=== PATIENT | female | born 1955 | race Caucasian/White ===

== ENCOUNTER 2024-05-24 10:56 | Outpatient (AMB) | payer OTHER, SELFPAY ==
--- NOTE | 2024-05-24 10:58 | MHC.OFFVIS ---
Vital Signs 05/24/24 11:11 Height 5 ft 3 in Weight 340 lb BMI 60.2 Intake Visit Reasons: Bilateral knee pain Intake Note: Marie is a 69 year old female who presents with complaints of progressively worsening bilateral knee pains. She describes her pains as sharp and severe in nature. Her pains are now interfering with her activities of daily living and her ability to sleep well through the night. She has failed the last 3 months of conservative treatment which has included a home exercise program, topical creams, Tylenol and naproxen. She has had multiple cortisone injections in the past at another facility. Those injections gave her no relief. She has also had viscosupplementation injections which gave her fairly good relief. Allergies No Known Allergies Allergy (Verified 05/24/24 11:11) Medication List - Last Reconciled 05/25/24 by Mendel Laura MD acetaminophen 500 mg PO Q4H PRN bupropion HCl SR 200 mg PO QAM citalopram 20 mg PO DAILY ibuprofen 600 mg PO QID PRN levothyroxine mcg PO naproxen 500 mg PO BID omeprazole 20 mg PO DAILY rosuvastatin 20 mg PO BEDTIME solifenacin 10 mg PO DAILY PFSH Social History (Updated 05/24/24 @ 11:12 by GENET Man) Alcohol intake: current Alcohol intake frequency: other Comment: vacation Patient Tobacco Use Status: Former Tobacco user Current occupational status: retired Physical Exam Vital Signs: BMI result Body Mass Index 60.2 Const Other: Well-nourished well-developed very friendly female awake alert and oriented x3 in no acute distress Extrem Other: Bilateral lower extremity examination shows good capillary refill, no skin lesions noted, normal sensation light touch Bilateral knee examination shows minimal effusions, palpable crepitus with range of motion, pain with range of motion, range of motion from -3 degrees to 115 degrees, no instability Results Reviewed Results Reviewed: X-rays of the patient's bilateral knee show severe joint space narrowing, subchondral sclerosis, no acute bony abnormalities Assessment & Plan Assessment & Plan (1) Pain in both knees: Code(s): M25.561 - Pain in right knee; M25.562 - Pain in left knee (2) Osteoarthritis of left knee: Code(s): M17.12 - Unilateral primary osteoarthritis, left knee Category: Medical (3) Osteoarthritis of right knee: Code(s): M17.11 - Unilateral primary osteoarthritis, right knee Category: Medical Plan Mrs. Ley presents with bilateral knee pains due to osteoarthritis. I had a lengthy discussion with the patient regarding the treatment options. She wishes to hold off on surgery for as long as possible. I agree with this plan. She has not gotten good relief from cortisone injections in the past. She has gotten good relief from viscosupplementation injections in the past. Thus, I will see whether not her insurance company will cover a viscosupplementation injection, such as Durolane, for both of her knees. I will see her back once the injections are available. Feel free to call me at any time should questions regarding her orthopedic management arise. I spent 22 minutes in reviewing the patient's records and imaging studies, seeing the patient and documenting in the medical record. Orders: Orders XR knee LT 3V 05/24/24 M25.562 - Pain in left knee XR knee RT 3V 05/24/24 M25.561 - Pain in right knee Coding Level of Care Code Est Pt Level 3 (50855) Complex EM visit Add On G2211 Diagnoses Pain in both knees M25.561; M25.562 Osteoarthritis of left knee M17.12 Osteoarthritis of right knee M17.11
[2024-05-24 11:11] VITALS: BMI 60.2
== END 2024-05-24 11:32 | disposition home or self-care (01) ==
PROVIDERS: PCP Internal Medicine; Visit Provider Orthopaedic Surgery
DX: M17.0 Bilateral primary osteoarthritis of knee (principal)
CPT/HCPCS: 99213

== ENCOUNTER 2024-05-24 11:31 | Outpatient (REF) | payer OTHER, SELFPAY | END 2024-05-24 11:32 | disposition home or self-care (01) | LOC: HO.HOSX 11:31 | PROVIDERS: Visit Provider Orthopaedic Surgery | DX: M25.562 Pain in left knee (principal); M25.561 Pain in right knee | CPT/HCPCS: 73562 ==

== ENCOUNTER 2024-07-03 10:05 | Outpatient (AMB) | payer OTHER, SELFPAY ==
[2024-07-03 10:08] VITALS: BMI 60.2
--- NOTE | 2024-07-03 10:08 | A.OFFVIS_ITS ---
Vital Signs 07/03/24 10:08 Height 5 ft 3 in Weight 340 lb BMI 60.2 Intake Visit Reasons: Bilateral knee pain Intake Note: Marie is a 69 year old female who presents with complaints of progressively worsening bilateral knee pains. She describes her pains as sharp and severe in nature. Her pains are now interfering with her activities of daily living and her ability to sleep well through the night. She has failed the last 3 months of conservative treatment which has included a home exercise program, topical creams, Tylenol and naproxen. She has had multiple cortisone injections in the past at another facility. Those injections gave her no relief. She has also had viscosupplementation injections which gave her fairly good relief. Allergies No Known Allergies Allergy (Verified 07/03/24 10:08) Medication List - Last Reconciled 07/03/24 by Mendel Laura MD acetaminophen 500 mg PO Q4H PRN bupropion HCl SR 200 mg PO QAM citalopram 20 mg PO DAILY ibuprofen 600 mg PO QID PRN levothyroxine mcg PO naproxen 500 mg PO BID omeprazole 20 mg PO DAILY rosuvastatin 20 mg PO BEDTIME solifenacin 10 mg PO DAILY PFSH Social History (Updated 05/24/24 @ 11:12 by GENET Man) Alcohol intake: current Alcohol intake frequency: other Comment: vacation Patient Tobacco Use Status: Former Tobacco user Current occupational status: retired Physical Exam Vital Signs: BMI result Body Mass Index 60.2 Const Other: Well-nourished well-developed very friendly female awake alert and oriented x3 in no acute distress Extrem Other: Bilateral lower extremity examination shows good capillary refill, no skin lesions noted, normal sensation light touch Bilateral knee examination shows minimal effusions, palpable crepitus with range of motion, pain with range of motion, no instability Office Procedures AMB Joint Injection/Aspiration Joint Injection/Aspiration Primary Site: left knee Prep: site was prepped using aseptic technique Injected: 60 mg of (Durolane viscosupplementation) and 1% plain lidocaine Procedure: The patient tolerated the procedure well Coding 86812 - Large joint Procedure code (CPT) selection complete AMB Joint Injection/Aspiration Joint Injection/Aspiration Primary Site: right knee Prep: site was prepped using aseptic technique Injected: 60 mg of (Durolane viscosupplementation) and 1% plain lidocaine Procedure: The patient tolerated the procedure well Coding 41852 - Large joint Procedure code (CPT) selection complete Results Reviewed Results Reviewed: X-rays of the patient's bilateral knees taken previously show joint space narrowing, subchondral sclerosis, no acute bony abnormalities Assessment & Plan Assessment & Plan (1) Osteoarthritis of left knee: Code(s): M17.12 - Unilateral primary osteoarthritis, left knee Category: Medical (2) Osteoarthritis of right knee: Code(s): M17.11 - Unilateral primary osteoarthritis, right knee Category: Medical (3) Pain in both knees: Code(s): M25.561 - Pain in right knee; M25.562 - Pain in left knee Plan Ms. Ley presents with bilateral knee pains due to osteoarthritis. The risks and benefits of bilateral knee Durolane viscosupplementation injections were discussed at length with the patient. The patient wished to proceed. She tolerated the injections well. She will continue with her home exercise program. She will contact me prior to her follow-up appointment in 3 months should any questions or concerns arise. Feel free to call me at any time should questions regarding her orthopedic management arise. I spent 21 minutes in reviewing the patient's records and imaging studies, seeing the patient and documenting in the medical record. Orders: Orders 2 AMB Joint Injection/Aspiration Today M17.12 - Unilateral primary osteoarthritis, left knee AMB Joint Injection/Aspiration Today M17.11 - Unilateral primary osteoarthritis, right knee Coding Level of Care Code Est Pt Level 3 (68100) Complex EM visit Add On G2211 Diagnoses Osteoarthritis of left knee M17.12 Osteoarthritis of right knee M17.11 Pain in both knees M25.561; M25.562 CPT Codes Coding - 48441 Large joint: 51875 - Large joint ([id number]) Coding - 33930 Large joint: 40024 - Large joint ([id number])
== END 2024-07-03 11:01 | disposition home or self-care (01) ==
PROVIDERS: PCP Internal Medicine; Visit Provider Orthopaedic Surgery
DX: M17.0 Bilateral primary osteoarthritis of knee (principal)
CPT/HCPCS: 20610; 99213

== ENCOUNTER → 2024-07-03 10:05 | Outpatient (BNVA) | payer OTHER, SELFPAY | PROVIDERS: PCP Internal Medicine; Visit Provider Orthopaedic Surgery | DX: M17.0 Bilateral primary osteoarthritis of knee (principal); M25.561 Pain in right knee; M25.562 Pain in left knee | CPT/HCPCS: 20610; J2003 ==

== ENCOUNTER 2025-03-05 13:20 | Outpatient (AMB) | payer OTHER, SELFPAY ==
[2025-03-05 13:28] VITALS: BP 122/64; PULSE 65; O2SAT 97; BMI 63.1
--- NOTE | 2025-03-05 13:28 | MHC.OFFVIS ---
Vital Signs 03/05/25 13:28 Height 5 ft 3 in Weight 356 lb 0.745 oz BMI 63.1 BP 122/64 Blood Pressure Location Lt brachial Position Sitting Pulse 65 Pulse Source Pulse Oximeter Pulse Oximetry (%) 97 Oxygen Delivery Method Room Air Intake Visit Reasons: Pulmonary Nodules Transit Department Clerk Required: No Accompanied by: Spouse Allergies No Known Allergies Allergy (Verified 03/05/25 13:34) HPI Comments Details: The patient is here for pulmonary evaluation. The patient is a 70 year woman with a known history pulmonary nodules. Apparently back in 2020 she was admitted to [facility] with sepsis and pneumonia. We did review her CAT scan at that point demonstrating the airspace disease primarily in the right base in addition to hiatal hernia multiple pulmonary nodules. She has had CAT scans throughout. Her last CT scan was back in February 2024 which I personally reviewed demonstrating new pulmonary nodules subcentimeter in size. Although the largest nodular density measuring 6 x 7 mm in the right hemithorax is a triangular shape is seems to be pretty stable from her CAT scan from 2022. She will need a repeat CAT scan at this time. In addition to that the patient is having reflux symptoms. She does have the hiatal hernia she understands that this can increase the risk of infection. We did talk about the reflux diet sleeping elevated with dunlap. The patient was also noted to have an elevated pulmonary trunk in diameter. Bringing up the question of pulmonary hypertension. She does use CPAP in the CPAP therapy has been affecting beneficial. She does get supplies from her [employer]. Will go ahead and request an overnight oximetry to make sure that she is getting adequate oxygenation while she is sleeping. Also need to get access to her machine in order to adjust the machine accordingly. If she does have evidence of hypoxia then she will need a titration study to adjust her pressures and see if she needs a different type of setting. [facility] Medical History (Updated 03/05/25 @ 21:56 by Kwan Avitia MD) GENEVA (obstructive sleep apnea) Pulmonary nodules Social History Alcohol intake: current Alcohol intake frequency: other Comment: vacation Patient Tobacco Use Status: Former Tobacco user Current occupational status: retired Review of Systems Const Reports daytime sleepiness Eyes Reports no additional complaints ENT Reports nasal congestion Card Denies chest pain and Reports dyspnea on exertion Resp Reports dyspnea on exertion and Denies wheezing GI Reports dyspepsia Musc Reports myalgias Skin/Breast Denies rash Neuro Reports no additional complaints Clay/Lymph Reports no additional complaints Aller/Immun Denies wheezing Physical Exam Vital Signs: Last Vital Signs Pulse 65 03/05/25 13:28 BP 122/64 03/05/25 13:28 Pulse Ox 97 03/05/25 13:28 Oxygen Delivery Method Room Air 03/05/25 13:28 BMI result Body Mass Index 63.1 Const General: comfortable HEENT Head: Yes normocephalic Neck Neck: Yes supple Resp Effort & Inspection: normal respiratory effort Cardio Heart sounds: S1 normal heart sound present and S2 normal heart sound present GI Palpation (GI): Soft to palpation Skin General skin exam: no rashes or lesions noted Extrem General: No clubbing, No cyanosis and Yes edema Assessment & Plan Assessment & Plan (1) Pulmonary nodules: Code(s): R91.8 - Other nonspecific abnormal finding of lung field Category: Medical (2) GENEVA (obstructive sleep apnea): Code(s): G47.33 - Obstructive sleep apnea (adult) (pediatric) Category: Medical (3) Pulmonary hypertension: Comment: ?based on the dilated pulmonary trunck Code(s): I27.20 - Pulmonary hypertension, unspecified Category: Medical Plan CT chest Low sodium diet Weight management continue APAP Overnight oximetry on APAP/RA ECHO per Cardiology Orders: Orders Overnight Pulse Oximetry Today G47.33 - Obstructive sleep apnea (adult) (pediatric), I27.20 - Pulmonary hypertension, unspecified CT chest wo IV con Today R91.8 - Other nonspecific abnormal finding of lung field Coding Level of Care Code New Pt Level 4 (08563) Diagnoses Pulmonary nodules R91.8 GENEVA (obstructive sleep apnea) G47.33 Pulmonary hypertension I27.20 Time Spent (min) 45
--- OUTSIDE RECORDS SUMMARY | 2025-03-05 14:11 | XMS_ITS | Patient Health Record ---
Author Organization [facility] Address [address] [place] [address] Care Team Providers Care Chart Reader Name Role Phone Priyanka Mckeon MD Primary Care Provider Cali[place]o yen Allergies No Known Allergies Reason For Referral No Information Medications Medication SIG (Take, Route, Frequency, Duration) Notes Start Date End Date Status Synthroid 50 MCG 1 tablet in the morning on an empty stomach Orally Once a day Active Rosuvastatin Calcium 20 MG 1 tablet Oral ly Once a day Active Omeprazole 20 MG 1 capsule 30 minutes before morning meal Orally Once a day Active Lisinopril 10 MG 1 tablet Orally Once a day Not-Taking Ibuprofen 600 MG 1 tablet with food o r milk as needed Orally Three times a day Active Cyclobenzaprine HCl 10 MG 1 tablet at be dtime as needed Orally Once a day Active amLODIPine Besylate 2.5 MG 1 tablet Oral ly Once a day Active Citalopram Hydrobromide 10 MG 1 tablet Orally Once a day Active buPROPion HCl ER (SR) 200 MG 1 tablet in the morning Orally Once a day Active Aspirin 81 81 MG 1 tablet Orally Once a day Active Wellbutrin SR 200 MG 1 tablet in the morning Orally Once a day Active Vitamin B-12 500 MCG 1 tablet under the tongue and allow to dissolve Sublingual Once a day Active Trospium Chloride ER 60 MG 1 capsule in the morning on an empty stomach or 1 hour before a meal Orally Once a day Active Social History Tobacco Use: Social History Observation Description Date Details (start date - stop date) Former Smoker NA - NA Tobacco Use/Smoking Question Answer Notes Are you a former smoker Problems Problem Type SNOMED Code ICD Code Onset Dates Problem Status W/U Status Risk Notes Problem Complex regional pain syndrome type I of bilateral lower limbs (disorder) ([id number]) Complex regional pain syndrome I of lower limb, bilateral (G90.523) Active confirmed Problem Bilateral primar y osteoarthritis of knee (M17.0) Active confirmed Plan Of Treatment No Information Insurance Providers Payer Name Payer Address Payer Phone Subscriber Number Group Number Insured Name Patient Relationship to Insured Coverage Start Date Coverage End Date [facility] [address] [place] [phone] [id number] [employer] Self - patient is the insured 5 Medical (General) History Medical History History ICD Code hypertension anemia hyperlipidemia hypothyroidism ibs Surgical History Surgery Date(Month/Year) gallbladder surgery Hospitalization History Reason Date(Month/Year) ER for concussion 03/2023 ER for UTI 04/2023
--- OUTSIDE RECORDS SUMMARY | 2025-03-05 14:11 | XMS_ITS | Clinical Summary ---
Author Organization [facility] Address [address] [place] [address] Care Team Providers Care Application Development Liaison Name Role Phone Priyanka Mckeon MD Primary Care Provider [phone] Allergies Active Allergy Reactions Criticality Noted Date Comments Mold Unknown 03/24/2023 Medications cyanocobalamin (VITAMIN B12) 500 mcg tablet Take 1 tablet by mouth every night. 3 Active Synthroid 50 mcg tablet Take 1 tablet by mouth every night. 100 mcg on SUN/WEDs 3 Active omeprazole (PriLOSEC) 20 mg capsule Take 20 mg by mouth every night. 3 Active citalopram (CeleXA) 20 mg tablet Take 20 mg by mouth every night. Active aspirin 81 mg EC tablet Take 81 mg by mouth every night. Active buPROPion SR (WELLBUTRIN SR) 200 mg tablet Take 200 mg by mouth every night. Active Gemtesa 75 mg tablet Take 75 mg by mouth every night. 5 Active ucszvfcx-zvu-AD-lyc open-lutein 0.4 mg-300 mcg- 250 mcg tablet Take 1 tablet by mouth every night. Active ascorbic acid (VITAMIN C) 500 mg tablet Take 500 mg by mouth every night. Active Vitamin D3 25 mcg (1,000 unit) capsule Take 1,000 Units by mouth every night. Active amLODIPine (NORVASC) 5 mg tablet SMARTSI Tablet(s) By Mouth Daily Active rosuvastatin (CRESTOR) 20 mg tabletIndications:H yperlipidemia, unspecified hyperlipidemia type Take 1 tablet (20 mg total) by mouth nightly. 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 04/23/2023 Mood disorder 04/23/2023 GENEVA on CPAP 04/23/2023 Pre-diabetes 04/23/2023 Tinea pedis 04/23/2023 Back pain 04/23/2023 Chest pain 04/15/2023 Aortic arch atherosclerosis 04/15/2023 HTN (hypertension) 04/15/2023 Hyperlipidemia 04/15/2023 Arthritis of knee, right 11/23/2018 Arthritis of knee, left 10/12/2018 Elevated transaminase level 08/09/2014 Rib contusion 11/09/2013 Sciatica of right side 09/21/2013 Colonoscopy (Fiberoptic) Screening 01/25/2013 Overview (03/30/2017): DIAGNOSTIC Hypothyroidism 01/25/2013 Immunizations Immunization Administration Dates Next Due INFLUENZA, SPLIT VIRUS, TRIVALENT, PF 05/19/2012 Tetanus Toxoid, Reduced Diph theria Toxoid, and Acellular Pertussis Vaccine, Adsorbed 09/07/2007 Family History Medical History Relation Name Comments Other Father Family History of arthritis Uterine cancer Maternal Grandmother Osteoporosis Mother Other Mother Family History of lung cancer Other Other 1 Family history of Cancer UTERINE CANCER Other Other 2 Family history of Stroke Syndrome Other Other 3 Family history of Diabetes Mellitus Other Sister 1 Family History of lymphoma Other Sister 2 Family History of myocardial infarction Breast cancer Neg Hx Cervical cancer Neg Hx Colon cancer Neg Hx Ovarian cancer Neg Hx Relation Name Status Comments Father Maternal Grandmother Mother Other 1 Other 2 Other 3 Sister 1 Sister 2 Social History Tobacco Use Types Packs/Day Years Used Date Smoking Tobacco: Former Cigarettes 1 22 1 3 - 1994 Smokeless Tobacco: Never Tobacco Cessation:Counseling Given: Not Answered Comments::QUIT 1994 Alcohol Use Standard Drinks/Week Comments Not Currently 0 (1 standard drink = 0.6 oz pur e alcohol) very rarely once a year Comments No Sex and Gender Information Value Date Recorded Sex Assigned at Female 04/08/2023 4:14 PM EDT Legal Sex Female 12:13 AM EDT Gender Identity Female 04/08/2023 4:14 PM EDT Sexual Orientation Choose not to disclose 2022 4:14 PM EDT Sexual Orientation Straight 04/08/2023 4: 14 PM EDT Last Filed Vital Signs Vital Sign Reading Time Taken Comments Blood Pressure 121/63 11/27/2024 1:08 PM EDT Pulse 68 11/27/2024 1:08 PM EDT Temperature 36.1 C (97 F) 11/27/2024 11:29 AM EDT Respiratory Rate 18 11/27/2024 1:08 PM EDT Oxygen Saturation 98% 11/27/2024 1:08 PM EDT Inhaled Oxygen Concentration - - Weight 165.6 kg (365 lb) 11/27/2024 11:29 AM EDT Height 160 cm (5' 3 ) 11/27/2024 11:29 AM EDT Body Mass Index 64.66 11/27/2024 11:29 AM EDT Plan of Treatment Upcoming Encounters Date Type Department Care Team (Late st Contact Info) Description 11/19/2025 1:00 PM EDT Follow-Up [address] Cardiology [address] [place] [id number] Angely Sol, SARAH [address] [place] [address] [address] [place] [address] Health Maintenance Due Date Last Done Comments Cologuard 1955 FOBT / Fit Test 1955 Hepatitis C Screening 1955 Sigmoidoscopy 1955 Mammogram 1996 Osteoporosis Screening 02/24/2006 Zoster Vaccines (1 of 2) 02/24/2006 RSV Vaccine (60+ years old and patients) (1 - Risk 60-74 years 1-dose series) 2016 Colon Cancer Screening 12/15/2021 Colonoscopy 12/15/2021 12/16/2011 Pneumococcal Vaccine: 50+ Years (2 of 2 - PCV) 2022 2021 COVID-19 Vaccine ( season) 2024 06/04/2022, 07/07/2021, 11/07/2020, Additional history exists Alcohol/Substance Use Screening 07/11/2024 Depression Screening and Follow-Up 07/11/2024 04/16/2023 Health Care Proxy Review 07/11/2024 Social Drivers of Health Annual Screening 07/11/2024 Influenza Vaccine (#1) 2025 , 06/25/2022, 05/30/2021, Additional history exists Basic Metabolic Panel 11/07/2025 11/07/2024 DTaP,Tdap,and Td Vaccines (3 - Td or Tdap) 04/18/2028 04/18/2018, 09/07/2007 Hepatitis B Vaccines Aged Out No long er eligible based on patient's age to complete this topic Medical Devices Implanted Type Area Merchant Mariner Device Identifier Shelf Expiration Date Model / Serial / Lot Lens Intraocular [employer]onome Ultraviolet Filtering 15.0 Diopter With [id number] Clareon - [id number] - [id number] Implanted:Qty: 1 on 11/13/2024 by Prudencio Loaiza MD at [facility] Lens YANCY 05/21/2027 CNA0T0 .150 / [id number] / Lens Intraocular [employer]onome Ultraviolet Filtering 15.0 Diopter With [id number] Clareon - [id number] - [id number] Implanted:Qty: 1 on 11/27/2024 by Prudencio Loaiza MD at [facility] Lens YANCY 12/27/2026 CNA0T0 .150 / [id number] / Procedures * Due to [place] MtoV law, this organization might not be sharing negative HIV tests. Procedure Name Priority Date/Time Associated Diagnosis Comments COMPREHENSIVE METABOLIC PANEL STAT 11/07/2024 11:51 AM EDT Pre-op evaluation HM COLONOSCOPY Routine 12/16/2011 2:35 PM EDT from Last 3 Months or Most Recently Relevant to Health Maintenance Results * Due to [place] MtoV law, this organization might not be sharing negative HIV tests. * (ABNORMAL) Comprehensive Metabolic Panel (11/07/2024 11:51 AM EDT) NA 138 136 - 145 mmol/L 11/07/2024 12:26 PM EDT [facility] K 5.0 3.5 - 5.1 mmol/L 11/07/2024 12:26 PM EDT [facility] Cl 101 98 - 109 mmol/L 11/07/2024 12:26 PM EDT [facility] CO2 27 22 - 32 mmol/L 11/07/2024 12:26 PM EDT [facility] Anion Gap 15 >=0 11/07/2024 12:26 PM EDT [facility] Glucose 105(H) 60 - 99 mg/dL 11/07/2024 12:26 PM EDT [facility] Creatinine 0.97 0.50 - 1.12 mg/dL 11/07/2024 12:26 PM EDT [facility] Calcium 10.1 8.4 - 10.4 mg/dL 11/07/2024 12:26 PM EDT [facility] Total Protein 7.3 6.6 - 8.7 g/dL 11/07/2024 12:26 PM EDT [facility] Albumin 4.1 3.5 - 5.0 g/dL 11/07/2024 12:26 PM EDT [facility] Bilirubin, Total 0.7 0.2 - 1.2 mg/dL 11/07/2024 12:26 PM EDT [facility] Alkaline Phosphatase 74 40 - 129 U/L 11/07/2024 12:26 PM EDT [facility] AST 24 0 - 33 U/L 11/07/2024 12:26 PM EDT [facility] ALT 19 <=33 U/L 11/07/2024 12:26 PM EDT [facility] BUN 18 8 - 23 mg/dL 11/07/2024 12:26 PM EDT [facility] eGFR 64 >=60 mL/min/1. 73m2 11/07/2024 12:26 PM EDT [facility] Comment:The estimated glomer ular filtration rate (eGFR) is calculated using a new formula developed by the NKF-ASN task force to eliminate race-based correction factors. The new formula uses serum/plasma creatinine, age, and gender to determine eGFR. A value below 60mls/min might indicate kidney disease and will be flagged. For additional information, see Destiny et al, Am J Kidney Dis. 2021;79(2):268- 288, A Unifying Approach for GFR estimation: Recommendations of the NKF-ASN Task Force on Reassessing the Inclusion of Race in Diagnosing Kidney Disease . Globulin, Total 3.2 2.1 - 4.2 g/dL 11/07/2024 12:26 PM EDT [facility] A/G Ratio 1.3(L) 1.5 - 3.0 11/07/2024 12:26 PM EDT [facility] Blood Structure of peripheral vein / Unknown Venipuncture / Unknown 11/07/2024 11:51 AM EDT 11/07/2024 11:59 AM EDT Zhanna [facility] LAB BLOOD ORDERABLES Final Resu lt Performing Organization Address City/[facility]/ZIP Co de Phone Number [facility] [address] [place] [address], [place] [phone] * COLONOSCOPY (12/16/2011 2:35 PM EDT) Colonoscopy [facility] T[facility] 12/16/2011 2:35 PM EDT Shyam Titus HEALTH MAINTENANCE Final Result [facility] from Last 3 Months or Most Recently Relevant to Health Maintenance Insurance [facility] [place] [id number] Advance Directives * Full Code (Latest Code Status on File) Date Activated Date Inactivated Comments 11/27/2024 11:44 AM 11/27/2024 3:51 PM * Full Code Date Activated Date Inactivated Comments 11/27/2024 11:44 AM 11/27/2024 11:44 AM * Full Code Date Activated Date Inactivated Comments 11/27/2024 11:44 AM 11/27/2024 11:44 AM * Full Code Date Activated Date Inactivated Comments 11/13/2024 9:32 AM 11/13/2024 1:36 PM * Full Code Date Activated Date Inactivated Comments 11/13/2024 9:32 AM 11/13/2024 9:32 AM Healthcare Agents on File Name Relationship Healthcare Agent [facility] Communication Yobani eLy Spouse Health Care Agent [email or web address] Care Teams Application Development Liaison Relationship Specialty Start Date End Date Priyanka Mckeon MD [address] [place] [address] PCP - General Internal Medicine 11/16/24
--- OUTSIDE RECORDS SUMMARY | 2025-03-05 14:11 | XMS_ITS | Clinical Summary ---
Author Organization [facility] Address [address] [place] [address] Care Team Providers Care Compensator Name Role Phone Priyanka Mckeon MD Primary Care Provi luca Allergies Active Allergy Reactions Criticality Noted Date Comments Other 07/20/2023 Other reaction(s): MILDEW,MOLD,GRASS,TREES-HIVES, POLLEN Other reaction(s): YEAST-HEADACHES Medications buPROPion (WELLBUTRIN SR) 100 MG 12 hr tablet Take 100 mg by mouth. 09/13/2017 Active buPROPion (WELLBUTRIN SR) 200 MG 12 hr tablet TAKE 1 TABLET BY MOUTH EVERY MORNING 10/18/2017 Active citalopram (CeleXA) 20 MG tablet TAKE 1 TABLET BY MOUTH EVERY DAY 07/16/2017 Active fluticasone propionate (FLONASE) 50 mcg/actuation nasal spray USE 1 SPRAY IN BOTH NOSTRILS TWICE A DAY FOR 14 DAYS 07/17/2017 Active fluticasone propionate (FLONASE) 50 mcg/actuation nasal spray 12/10/2020 Active gabapentin (NEURONTIN) 600 MG tablet 600 mg. 08/17/2017 Active hyaluronate sodium, stabilized (Monovisc) 88 mg/4 mL syrg 05/09/2018 Active levothyroxine (SYNTHROID) 50 MCG tablet TAKE 1 TABLET BY MOUTH EVERY DAY 07/16/2017 Active Synthroid 50 mcg tablet 12/17/2020 Active lisinopriL (ZESTRIL) 10 MG tablet TAKE 1 TABLET BY MOUTH EVERY DAY 07/18/2017 Active lisinopriL (ZESTRIL) 10 MG tablet 09/24/2020 Active melatonin 3 mg tab Take 3 mg by mouth. 11/15/2017 Active Myrbetriq 25 mg Tb24 TAKE 1 TABLET BY MOUTH EVERY DAY DO NOT CRUSH OR CHEW 11/15/2020 Active omeprazole (PriLOSEC) 20 MG capsule Take 20 mg by mouth. 07/16/2017 Active omeprazole (PriLOSEC) 20 MG capsule 10/21/2020 Active ondansetron (ZOFRAN) 4 MG tablet 12/17/2020 Active albuterol 90 mcg/actuation inhaler INHALE 1 TO 2 PUFFS EVERY 4 HOURS IF NEEDED. 04/16/2018 Active celecoxib (CeleBREX) 200 MG capsule TAKE 1 CAPSULE BY MOUTH TWICE A DAY 03/24/2023 Active cholecalciferol , vitamin D3, 50 mcg (2,000 unit) tab Daily, 11/09/13 13:39:00 11/09/2013 Active cyclobenzaprine (FLEXERIL) 10 MG tablet TAKE 1 TABLET BY MOUTH 3 TIMES A DAY NEEDED SPASM FOR 7 DAYS 01/19/2023 Active ibuprofen (MOTRIN) 600 MG tablet TAKE 1 TABLET BY MOUTH 3 TIMES A DAY 01/19/2023 Active rosuvastatin 20 mg cpSP Take 20 mg by mouth 01/20/2023 Active rosuvastatin (CRESTOR) 20 MG tablet TAKE 1 TABLET BY MOUTH EVERY DAY 03/04/2023 Active buPROPion (Wellbutrin SR) 200 MG 12 hr tablet Take 1 tablet (200 mg total) by mouth 11/09/2022 Active citalopram (CeleXA) 10 MG tablet See Instructions, 1.5 tab a day, # 135 tablet, 1 Refills, Maintenance, 03/09/23 8:05:00 EDT, Tablet, [facility]/pharmacy #[id number], 160, cm, 01/27/23 11:22:00 EDT, Height, 169.7, kg, 01/19/23 14:55:00 EDT, Dry Weight 09/07/2022 Active citalopram (CeleXA) 10 MG tablet TAKE 1 & 1/2 TABLETS BY MOUTH EVERY DAY 03/09/2023 Active mirabegron 25 mg Take 25 mg by mouth 11/09/2022 Active mirabegron (Myrbetriq) 50 mg Take 50 mg by mouth 11/18/2022 Active omeprazole (PriLOSEC) 20 MG capsule Take 1 capsule (20 mg total) by mouth 11/10/2022 Active acetaminophen (TYLENOL) 325 MG tablet TAKE 3 TABLETS BY MOUTH EVERY 6 HOURS NEEDED FOR MODERATE PAIN 06/24/2023 Active acetaminophen (TYLENOL) 325 MG tablet Take 3 tablets (975 mg total) by mouth 06/24/2023 Active amLODIPine (NORVASC) 2.5 MG tablet TAKE 2 TABLETS BY MOUTH DAILY AT BEDTIME 06/22/2023 Active Readi-Cat 2 2 % (w/v) susp DRINK 1 BOTTLE BY 8 AM & SECOND BOTTLE 90 MINUTES BEFORE THE TEST. LIGHT MEAL, PLENTY OF FLUIDS. 05/09/2023 Active clonazePAM (KlonoPIN) 0.5 MG tablet TAKE 1 TABLET BY MOUTH EVERY DAY NEEDED FOR ANXIETY 05/04/2023 Active oxyCODONE-aceta minophen (PERCOCET) 5-325 mg tablet 1 tablet 06/21/2023 Act romulo sulfamethoxazol e-trimethoprim (BACTRIM DS) 800-160 mg tablet TAKE 1 TABLET BY MOUTH TWICE A DAY 04/17/2023 Active oxyCODONE-aceta minophen (PERCOCET) 5-325 mg tablet TAKE 1 TAB BY MOUTH EVERY 8 HOURS NEEDED FOR SEVERE PAIN,NO DRIVE/ALCOHOL /CLONAZEPAM/T YLENOL 06/02/2023 Active trospium 60 mg cp24 TAKE 1 CAPSULE BY MOUTH EVERY MORNING 06/03/2023 Active trospium 60 mg cp24 Take 60 mg by mouth 05/13/2023 Active gabapentin (NEURONTIN) 100 MG capsule TAKE 2 CAPSULES BY MOUTH EVERY DAY AT BEDTIME 05/24/2023 Active Social History Tobacco Use Types Packs/Day Years Used Date Smoking Tobacco: Former Smokeless Tobacco: Never Tobacco Cessation:Counseling Given: Not Answered Comments Unknown Sex and Gender Information Value Date Recorded Sex Assigned at Not on file Legal Sex Female 5:06 PM EDT Gender Identity Not on file Sexual Orientation Not on file Last Filed Vital Signs Vital Sign Reading Time Taken Comments Blood Pressure 124/74 07/20/2023 8:46 AM EST Pulse 81 07/20/2023 8:46 AM EST Temperature 36.3 C (97.4 F) 07/20/2023 8:46 AM EST Respiratory Rate 18 07/20/2023 8:46 AM EST Oxygen Saturation 98% 07/20/2023 8:46 AM EST Inhaled Oxygen Concentration - - Weight - - Height - - Body Mass Index - - Plan of Treatment Health Maintenance Due Date Last Done Comments Colorectal Cancer: COLONOSCO PY Screening every 10 yrs (or Modifier) 1955 Depression: Screening Annual ly using PHQ-2/9 in Adults 18 yrs or above (or HM Modifier)([facility]) 02/24/1974 Hepatitis C Virus Infection in Adolescents and Adults: Screening (or Modifier) ([facility]) 02/24/1974 [facility] Screening Reminder: Suzi ually for all adults ([facility]) 02/24/1974 Colorectal Cancer Screening 45 -75 Yrs (or HM Modifier) 02/24/2001 Colorectal Cancer: FLEXIBLE SIGMOIDOSCOPY Screening every 5 yrs 02/24/2001 Colorectal Cancer: Fecal Immunochemical Test (FIT) Annually [facility] 02/24/2001 Colorectal Cancer: High-sens itivity gFOBT Screening Annually [facility] 02/24/2001 Colorectal Cancer: Stool Col oguard Screening every 3 yrs 02/24/2001 Colorectal Cancer:CT Colonog simon Screening every 5 yrs 02/24/2001 Breast Cancer: Screening Suzi ually age 50-74 yrs (or HM Modifier)([facility]) 02/24/2006 Lung Cancer: Screening Annua lly in adults aged 50 to 80 years (or HM Modifiers)([facility]) 02/24/2006 Zoster/Shingles Vaccine Seri es Screening: Adults aged 18+ yrs (or HM Modifiers)([facility]) (1 of 2) 02/24/2006 Osteoporosis Screening to Pr event Fractures: Women aged 65 years+ ([facility]) 02/24/2021 Tobacco Smoking Cessation: i n Adults excluding Women: Behavioral and Pharmacotherapy Interventions ([facility]) 12/20/2021 12/20/2020 Pneumococcal Vaccination Scr eening: Patients 50+ yrs of age ([facility]) (2 of 2 - PCV) 2022 2021 COVID-19 Vaccine Screening: Initial Series and Booster Status ([facility]) ( - 2023- season) 2024 07/07/2021, 11/07/2020, 10/17/2020 Flu Vaccination: Ages 65+: Y early High Dose Recommended (or Modifier)([facility]) 02/08/2025 DTaP/Tdap/Td Vaccines ([facility]) (3 - Td or Tdap) 04/18/2028 04/18/2018, 09/06/2007 RSV Vaccines (1 - 1-dose 75+ series) 02/24/2031 Medical Devices Not on file Insurance [employer] Care Teams Compensator Relationship Specialty Start Date End Date Priyanka Mckeon MD [address] [place] [address] PCP - General Internal Medicine 12/20/20
--- OUTSIDE RECORDS SUMMARY | 2025-03-05 14:11 | XMS_ITS | Clinical Summary ---
Author Organization [facility] Address [address] [place] [address] Care Team Providers Care Mechanical Engineering Technologist Name Role Phone Priyanka Mckeon MD Primary Care Provider [phone] Allergies Active Allergy Reactions Criticality Noted Date Comments Penicillins 10/12/2017 Medications Medication Sig Dispensed Refills Start Date End Date Status buPROPion (WELLBUTRIN SR) 100 MG 12 hr tablet Take 100 mg by mouth every morning. 2 09/13/2017 Active citalopram (CELEXA) 20 MG tablet TAKE 1 TABLET BY MOUTH EVERY DAY 1 07/16/2017 Active fluticasone (FLONASE) 50 MCG/ACT nasal spray USE 1 SPRAY IN BOTH NOSTRILS TWICE A DAY FOR 14 DAYS 1 07/17/2017 Active gabapentin (NEURONTIN) 600 MG tablet 600 mg 3 (three) times a day. 1 08/17/2017 Active levothyroxine (SYNTHROID, LEVOXYL) tablet 50 mcg TAKE 1 TABLET BY MOUTH EVERY DAY 1 07/16/2017 Active lisinopril (PRINIVIL,ZESTRIL) tablet 10 mg TAKE 1 TABLET BY MOUTH EVERY DAY 1 07/18/2017 Active omeprazole (PRILOSEC) 20 MG capsule Take 20 mg by mouth 2 (two) times a day. 1 07/16/2017 Active buPROPion (WELLBUTRIN SR) 200 MG 12 hr tablet TAKE 1 TABLET BY MOUTH EVERY MORNING 2 10/18/2017 Active [facility] MELATONIN 3 MG TABS tablet Take 3 mg by mouth every night at bedtime as needed. for insomnia 1 11/15/2017 Active MONOVISC 88 MG/4ML SOSY 0 05/09/2018 Active VENTOLIN HFA 108 (90 Base) MCG/ACT inhaler INHALE 1 TO 2 PUFFS EVERY 4 HOURS IF NEEDED. 0 04/16/2018 Active dextromethorphan-guai FENesin (ROBITUSSIN-DM) 10-100 MG/5ML liquid Take 10 mL by mouth every 6 (six) hours as needed. 0 12/20/2020 Active Myrbetriq 25 MG TB24 24 hr tablet 0 11/24/2021 Active ondansetron (ZOFRAN) 4 MG tablet 0 12/17/2020 Active Active Problems Problem Noted Date Diagnosed Date Arthritis of knee, right 11/23/2018 Arthritis of knee, left 10/12/2018 Arthritis of right knee 10/12/2017 Immunizations Name Administration Dates Next Due Covid-19 (Pfizer) Dilution Required 11/07/2020,0 10/17/2020 Family History Medical History Relation Name Comments Cancer Brother Arthritis Father Cancer Father Arthritis Mother Blood Clots Mother Cancer Mother Diabetes Mother Heart disease Mother Cancer Sister Relation Name Status Comments Brother Father Mother Sister Social History Tobacco Use Types Packs/Day Years Used Date Smoking Tobacco: Former Cigarettes 1 Pipe Cigars Nicotine Inhalation Smokeless Tobacco: Former Quit: 1995 Alcohol Use Standard Drinks/Week Comments Yes 0 (1 standard drink = 0.6 oz pur e alcohol) social Sex and Gender Information Value Date Recorded Sex Assigned at Not on file Gender Identity Not on file Sexual Orientation Not on file Job Start Date Occupation Industry Not on file Not on file Not on file Last Filed Vital Signs Vital Sign Reading Time Taken Comments Blood Pressure - - Pulse - - Temperature - - Respiratory Rate - - Oxygen Saturation - - Inhaled Oxygen Concentration - - Weight 157.9 kg (348 lb) 01/13/2022 1:33 PM EDT Height 160 cm (5' 3 ) 01/13/2022 1:33 PM EDT Body Mass Index 61.65 01/13/2022 1:33 PM EDT Plan of Treatment Health Maintenance Due Date Last Done Comments Hepatitis C Screening 1955 Depression Screening 1968 BMI Counseling 02/24/1974 Preventative Health Evaluation 02/24/1974 DTap / Tdap / Td (1 - Tdap) 02/24/1975 Colon Cancer Screening (Colonoscopy) 02/24/2001 Breast Cancer Screening (Mammogram) 02/24/2006 Shingrix-Zoster Vaccine (1 o f 2) 02/24/2006 Fall Risk Assessment 02/24/2021 Osteoporosis Screening (DEXA Scan) 02/24/2021 Pneumococcal Vaccine (2 of 2 - PCV) 2022 2021 COVID-19 Vaccine (3 - 2023-2 5 season) 2024 11/07/2020, 10/17/2020 Influenza Vaccine (#1) 2025 , 06/25/2019 RSV Adult > 60+ Yrs or (1 - 1-dose 75+ series) 02/24/2031 Hepatitis B Vaccines Aged Out No long er eligible based on patient's age to complete this topic RSV Ped < 20 months Aged Out No longe r eligible based on patient's age to complete this topic Care Teams Mechanical Engineering Technologist Relationship Specialty Start Date End Date Priyanka Mckeon MD [address] [place] [address] [place] [address] PCP - General Internal Medicine 11/26/21
--- OUTSIDE RECORDS SUMMARY | 2025-03-05 14:11 | XMS_ITS | Encounter Summary ---
Author Organization [facility] Address [address] [place] [address] Care Team Providers Care Supervisor Melt House Name Role Phone Priyanka Mckeon MD Primary Care Provider [phone] Encounter Details Date Type Department Care Team (Latest Contact Info) Description 04/11/2023 Lab Requisition [facility] [address] [place] [address] Lindsey Ricks MD [address] [place] [address] Postmenopausal bleeding Social History Tobacco Use Types Packs/Day Years Used Date Smoking Tobacco: Former Comments::QUIT 1994 Comments Unknown Sex and Gender Information Value Date Recorded Sex Assigned at Female 04/08/2023 4:14 PM EDT Legal Sex Female 12:13 AM EDT Gender Identity Female 04/08/2023 4:14 PM EDT Sexual Orientation Choose not to disclose 2022 4:14 PM EDT Sexual Orientation Straight 04/08/2023 4: 14 PM EDT documented as of this encounter Plan of Treatment Upcoming Encounters Date Type Department Care Team (Late st Contact Info) Description 11/19/2025 1:00 PM EDT Follow-Up [facility] 100 [facility] Medical [facility] Cardiology [address] [place] [address] Angely Sol NP [address] [place] [address] documented as of this encounter Procedures * Due to [place] state law, this organization might not be sharing negative HIV tests. Procedure Name Priority Date/Time Associated Diagnosis Comments TISSUE EXAM - BENDER ONLY Routine 04/08/2023 3:44 PM EDT Postmenopausal bleeding documented in this encounter Results * Due to [place] law, this organization might not be sharing negative HIV tests. * Tissue Exam - Bender only (04/08/2023 3:44 PM EDT) Tissue Exam Result SEE DETAILS 04/13/2023 4:15 PM EDT [facility] Comment: FINAL DIAGNOSIS Endometrium, biopsy: - Small focus of crowded glands. - Background inactive endometrium. Comment: A small focus of crowded glands is present. These glands have altered cytologic features which suggests the possibility of atypical endometrial hyperplasia (endometrial intraepithelial neoplasia, EIN). However, the size of the focus is insufficient to establish a diagnosis of atypical endometrial hyperplasia (EIN). Repeat endometrial sampling (curettage) for further evaluation is recommended. Madhu Durand M.D. Electronic Signature: 04/13/2023 16:11 Crowded glands Crowded glands Clinical History Postmenopausal bleeding Microscopic Description Microscopic sections examined. Macroscopic Description Received in formalin is 0.5 cc aggregate whitfield soft tissue admixed with mucus and blood clot, wrapped in lens paper and totally submitted in cassette A1. (PK) Unless otherwise stated, all tissue is formalin-fixed and paraffin-embedded. This case was reviewed intradepartmentally. Grossing and technical work performed at [facility] ([facility], [address] [place] [address]; ; [id number]; CLIA #[id number] All professional pathology services performed at [facility] ([address] [place] [address]; ; CLIA #[id number]) Note: Some or all of the tests utilized in this case may be laboratory developed tests (LDT's) and may use class I analyte specific reagents (ASR). These tests were developed for clinical purposes and their performance characteristics determined by [facility] on tissue fixed in 10% neutral buffered formalin. Other fixatives have not been validated, and therefore results on tissue with such fixation should be interpreted with caution and in the clinical context. [facility] are qualified under the CLIA 1988 documents to provide high-complexity clinical laboratory testing. Tissue Specimen from endometrium / Unknown 04/08/2023 3:44 PM EDT 04/11/2023 11:57 AM EDT us Lindsey Ricks MD LAB PATH/CYTO ([place]) Final Result [facility] [address] [place] [address], documented in this encounter Visit Diagnoses Diagnosis Postmenopausal bleeding documented in this encounter Care Teams Supervisor Melt House Relationship Specialty Start Date End Date Priyanka Mckeon MD [address] [place] [address] PCP - General Internal Medicine 11/16/24 documented as of this encounter
== END 2025-03-05 14:14 | disposition home or self-care (01) ==
LOC: HO.HPS 13:20
PROVIDERS: PCP Internal Medicine; Visit Provider Hospitalist
DX: R91.8 Other nonspecific abnormal finding of lung field (principal); G47.33 Obstructive sleep apnea (adult) (pediatric); I27.20 Pulmonary hypertension, unspecified
CPT/HCPCS: 99204

== ENCOUNTER 2025-04-17 11:14 | Outpatient (AMB) | payer OTHER, SELFPAY ==
--- NOTE | 2025-04-17 11:30 | A.OFFVIS_ITS ---
Vital Signs 04/17/25 11:35 Height 5 ft 3 in Weight 348 lb BMI 61.6 Intake Visit Reasons: Bilateral knee pain Intake Note: Marie is a 70 year old female who presents with complaints of progressively worsening bilateral knee pain. She describes her pains as sharp in nature. The patient states that she did have a cortisone injection given into her left knee by another provider approximately 1 month ago. She got fairly good relief from that injection. She continues with her home exercise program. She has tried Tylenol which gives her mild relief. She is not able to tolerate anti- inflammatory medicines. Allergies NSAIDS (Non-Steroidal Anti-Inflamma Adverse Reaction (Mild, Verified 04/17/25 11:37) Unknown Medication List - Last Reconciled 04/17/25 by Mendel Laura MD acetaminophen 500 mg PO Q4H PRN amlodipine 5 mg PO DAILY ascorbate calcium (vitamin C) 500 mg PO DAILY bupropion HCl SR 200 mg PO QAM cholecalciferol (vitamin D3) 50 mcg PO DAILY citalopram 20 mg PO DAILY levothyroxine mcg PO mecobalamin (vitamin B12) mcg PO omeprazole 20 mg PO DAILY rosuvastatin 20 mg PO BEDTIME [facility] Medical History (Updated 03/05/25 @ 21:56 by Kwan Avitia MD) GENEVA (obstructive sleep apnea) Pulmonary nodules Social History Alcohol intake: current Alcohol intake frequency: other Comment: vacation Patient Tobacco Use Status: Former Tobacco user Current occupational status: retired Physical Exam Vital Signs: BMI result Body Mass Index 61.6 Extrem Other: Bilateral knee examination shows minimal effusions, palpable crepitus with range of motion, pain with range of motion, no instability Results Reviewed Results Reviewed: X-rays of the patient's bilateral knees taken previously show joint space narrowing, subchondral sclerosis, no acute bony abnormalities Assessment & Plan Assessment & Plan (1) Pain in both knees: Code(s): M25.561 - Pain in right knee; M25.562 - Pain in left knee Plan Ms. Ley presents with bilateral knee pains due to degenerative joint disease. I had a lengthy discussion with the patient regarding the treatment options. We will hold off on another injection at this time because she had a cortisone injection just 1 month ago. She will continue with her activity modifications. She will contact me prior to her follow-up appointment in 2 months should any questions or concerns arise. Feel free to call me at any time should questions regarding her orthopedic management arise. I spent 21 minutes in reviewing the patient's records and imaging studies, seeing the patient and documenting in the medical record. Coding Level of Care Code Est Pt Level 3 (76270) Complex EM visit Add On G2211 Diagnoses Pain in both knees M25.561; M25.562
[2025-04-17 11:35] VITALS: BMI 61.6
== END 2025-04-17 12:03 | disposition home or self-care (01) ==
LOC: HO.HOS 11:15
PROVIDERS: PCP Internal Medicine; Visit Provider Orthopaedic Surgery
DX: M25.561 Pain in right knee (principal); M25.562 Pain in left knee
CPT/HCPCS: 99213

== ENCOUNTER 2025-05-02 12:46 | Outpatient (AMB) | payer OTHER, SELFPAY ==
[2025-05-02 12:58] VITALS: BP 110/62; PULSE 73; O2SAT 96; BMI 61.3
--- NOTE | 2025-05-02 12:58 | A.OFFVIS_ITS ---
Vital Signs 05/02/25 12:58 Height 5 ft 3 in Weight 346 lb 2.012 oz BMI 61.3 BP 110/62 Blood Pressure Location Lt radial Position Sitting Pulse 73 Pulse Source Pulse Oximeter Pulse Oximetry (%) 96 Oxygen Delivery Method Room Air Intake Visit Reasons: Pulmonary Nodules Ground Equipment Mechanic Required: No Accompanied by: Spouse Allergies No Known Allergies Allergy (Verified 05/02/25 13:02) HPI Comments Details: The patient is a 70 year woman with a known history pulmonary nodules. Apparently back in 2020 she was admitted to [facility] with sepsis and pneumonia. We did review her CAT scan at that point demonstrating the airspace disease primarily in the right base in addition to hiatal hernia multiple pulmonary nodules. She has had CAT scans throughout. Her last CT scan was back in February 2024 which I personally reviewed demonstrating new pulmonary nodules subcentimeter in size. Although the largest nodular density measuring 6 x 7 mm in the right hemithorax is a triangular shape is seems to be pretty stable from her CAT scan from 2022. She will need a repeat CAT scan at this time. In addition to that the patient is having reflux symptoms. She does have the hiatal hernia she understands that this can increase the risk of infection. We did talk about the reflux diet sleeping elevated with dunlap. The patient was also noted to have an elevated pulmonary trunk in diameter. Bringing up the question of pulmonary hypertension. She does use CPAP in the CPAP therapy has been affecting beneficial. She does get supplies from her [employer]. Will go ahead and request an overnight oximetry to make sure that she is getting adequate oxygenation while she is sleeping. Also need to get access to her machine in order to adjust the machine accordingly. If she does have evidence of hypoxia then she will need a titration study to adjust her pressures and see if she needs a different type of setting. 05/02/2025 the patient is here for pulmonary follow-up visit. Overall the patient has been doing fair. Apparently she did get all the vaccines that she needed to get. The last when she got out the RSV, RSV. Afterwards she got sick. She is not sure if it was from the vaccine or just a coincidence. She started developing worsening cough chest tightness and fatigue. She also complains of a sore throat. They did do a rapid strep at the urgent care and was negative. She was not swabbed for COVID or flu. At this point he has been about 5 or 6 days since her illness so will hold off on any swabs. Still though her lungs are clear she does have some rhonchi. I did give her a nebulizer treatment she was able to cough up some yellow phlegm. She did have a chest x- ray at the urgent care. There was some atelectasis question pneumonia. They gave her a Z-Min and a 3 day course of Augmentin. I will go ahead and switch over to just a stronger dose of azithromycin 500 mg for 5 days. The patient also will be could be getting a Medrol Min to help her with the inflammation and also a rescue inhaler. She did get a nebulizer treatment in the office it did help her and if she does need a nebulizer machine for the home she can always call so we can set her up with 1. She did have a CT scan of the chest at [facility]. This is done prior to her illness demonstrating stable pulmonary nodules. No evidence of any atelectasis or pneumonia in the left base. I do have a CD with her chest x-ray images. I will downloaded to review it. If the patient is not better she is going to call. Otherwise will follow- up in 3 months. [facility] Medical History (Updated 05/02/25 @ 22:06 by Kwan Avitia MD) GENEVA (obstructive sleep apnea) Pulmonary nodules Social History Alcohol intake: current Alcohol intake frequency: other Comment: vacation Patient Tobacco Use Status: Former Tobacco user Current occupational status: retired Review of Systems Const Reports daytime sleepiness, Reports fatigue and Reports malaise Eyes Reports no additional complaints ENT Reports nasal congestion Card Denies chest pain and Reports dyspnea on exertion Resp Reports chest congestion, Reports cough, Reports dyspnea on exertion and Reports wheezing GI Reports dyspepsia Musc Reports myalgias Skin/Breast Denies rash Neuro Reports no additional complaints Endo Reports fatigue Caly/Lymph Reports no additional complaints Aller/Immun Reports wheezing Physical Exam Vital Signs: Last Vital Signs Pulse 73 05/02/25 12:58 BP 110/62 05/02/25 12:58 Pulse Ox 96 05/02/25 12:58 Oxygen Delivery Method Room Air 05/02/25 12:58 BMI result Body Mass Index 61.3 Const General: comfortable HEENT Head: Yes normocephalic Neck Neck: Yes supple Resp Effort & Inspection: normal respiratory effort and prolonged expiratory phase Auscultation: diminished lung sounds Cardio Heart sounds: S1 normal heart sound present and S2 normal heart sound present GI Palpation (GI): Soft to palpation Skin General skin exam: no rashes or lesions noted Extrem General: No clubbing, No cyanosis and Yes edema Assessment & Plan Assessment & Plan (1) Pulmonary nodules: Code(s): R91.8 - Other nonspecific abnormal finding of lung field Category: Medical (2) GENEVA (obstructive sleep apnea): Code(s): G47.33 - Obstructive sleep apnea (adult) (pediatric) Category: Medical (3) Pulmonary hypertension: Comment: ?based on the dilated pulmonary trunck Code(s): I27.20 - Pulmonary hypertension, unspecified Category: Medical (4) Bronchitis: Code(s): J40 - Bronchitis, not specified as acute or chronic Category: Medical Plan CT chest stable 03/2025 start Azithromycin 500mg x 5 days start Medrol pk MIGUEL as needed Mucinex as needed continue APAP ECHO per Cardiology Need to review CXR F/U 3 months, will call if no better Medications: New azithromycin 500 mg PO DAILY 5 tabs 0RF 5 days methylprednisolone (Medrol (Min)) PO PER PKG DIR 21 ea 0RF 6 days albuterol sulfate 90 mcg/actuation 2 inhalations inhalation Q6H PRN 18 grams 12RF shortness of breath or wheezing 30 days J44.9 - Chronic obstructive pulmonary disease, unspecified Coding Level of Care Code Est Pt Level 4 (69217) Diagnoses Pulmonary nodules R91.8 GENEVA (obstructive sleep apnea) G47.33 Pulmonary hypertension I27.20 Bronchitis J40 Time Spent (min) 17
--- OUTSIDE RECORDS SUMMARY | 2025-05-02 15:53 | XMS_ITS | Clinical Summary ---
Author Organization [facility] Address [address] [place] [address] Care Team Providers Care Financial Assistance Specialist Name Role Phone Priyanka Mckeon MD Primary Care Provider [phone] Allergies Active Allergy Reactions Criticality Noted Date [...] mg by mouth every night. 5 Active [id number]-[id number]-[id number]-lyc open-lutein 0.4 mg-300 mcg- 250 mcg tablet [...] cardiovascular exam 07/27/2023 Anemia 04/23/2023 CAD in [place] artery 04/23/2023 SY (dyspnea on exertion) 04/23/2023 [...] Info) Description 11/19/2025 1:00 PM EDT Follow-Up [address] Cardiology [address] [place] [address] Angely Sol, SARAH [address] [place] [address] [address] [place] [address] Health Maintenance Due Date Last Done Comments [...] (2 of 2 - PCV) 2022 2021 Alcohol/Substance Use Screening 07/11/2024 Depression Screening and Follow-Up 07/11/2024 Health Care Proxy Review 07/11/2024 Social Drivers of Health Annual Screening 07/11/2024 COVID-19 Vaccine ( season) 2025 06/04/2022, 07/07/2021, 11/07/2020, Additional history exists Influenza Vaccine (#1) 2025 , 06/25/2022, 05/30/2021, Additional history exists Basic Metabolic Panel 11/07/2025 11/07/2024 Diabetes Screening 11/08/2027 11/07/2024, 11/07/2024 DTaP,Tdap,and Td Vaccines (3 - Td or Tdap) 04/18/2028 04/18/2018, 09/07/2007 Hepatitis B Vaccines Aged Out No long er eligible based on patient's age to complete this topic Medical Devices Implanted Type Area Processor Inspector Device Identifier Shelf Expiration Date Model / Serial / Lot Lens Intraocular [employer]onome Ultraviolet Filtering 15.0 Diopter With [id number] [place] - [id number] - [id number] Implanted:Qty: 1 on 11/13/2024 by Prudencio Loaiza MD at [facility] Lens YANCY 05/21/2027 CNA0T0 .150 / [id number] / Lens Intraocular [employer]onome Ultraviolet Filtering 15.0 Diopter With [id number] [place] - [id number] - [id number] Implanted:Qty: 1 on 11/27/2024 by Prudencio Loaiza MD at [facility] Lens YANCY 12/27/2026 CNA0T0 .150 / [id number] / Procedures * Due to [place] state law, this organization might not be sharing negative HIV tests. Procedure Name Priority Date/Time Associated Diagnosis Comments HEMOGLOBIN A1C STAT 11/07/2024 11:53 AM EDT Pre-op evaluation COMPREHENSIVE METABOLIC PANEL STAT 11/07/2024 11:51 AM EDT Pre-op evaluation HM COLONOSCOPY Routine 12/16/2011 2:35 PM EDT from Last 3 Months or Most Recently Relevant to Health Maintenance Results * Due to [place] state law, this organization might not be sharing negative HIV tests. * (ABNORMAL) Hemoglobin A1c (11/07/2024 11:53 AM EDT) Hemoglobin A1c 5.8(H) 4.0 - 5.7 % 11/07/2024 12:20 PM EDT [facility] Estimated Average Glucose 120 mg/dL 11/07/2024 12:20 PM EDT [facility] Blood Structure of peripheral vein / Unknown Venipuncture / Unknown 11/07/2024 11:53 AM EDT 11/07/2024 11:59 AM EDT us Zhanna Israel IT BUSINESS SYSTEMS ANALYST LAB BLOOD ORDERABLES Final Resu lt Performing Organization Address City/State/[facility] Co de Phone Number [facility] [address] [place] [address], * (ABNORMAL) Comprehensive Metabolic Panel (11/07/2024 11:51 AM EDT) Pathologist [facility] NA 138 136 - 145 mmol/L 11/07/2024 12:26 PM EDT [facility] K 5.0 3.5 - 5.1 mmol/L 11/07/2024 12:26 PM EDT [facility] Cl 101 98 - 109 mmol/L 11/07/2024 12:26 PM EDT [facility] CO2 27 22 - 32 mmol/L 11/07/2024 12:26 PM EDT [facility] Anion Gap 15 >=0 11/07/2024 12:26 PM EDT [facility] Glucose 105(H) 60 - 99 mg/dL 11/07/2024 12:26 PM EDT [facility] Creatinine 0.97 0.50 - 1.12 mg/dL 11/07/2024 12:26 PM EDT [facility] Calcium 10.1 8.4 - 10.4 mg/dL 11/07/2024 12:26 PM EDT [facility] Total Protein 7.3 6.6 - 8.7 g/dL 11/07/2024 12:26 PM EDT [facility] Albumin 4.1 3.5 - 5.0 g/dL 11/07/2024 12:26 PM EDT [facility] Bilirubin, Total 0.7 0.2 - 1.2 mg/dL 11/07/2024 12:26 PM EDT [facility] Alkaline Phosphatase 74 40 - 129 U/L 11/07/2024 12:26 PM EDT [facility] AST 24 0 - 33 U/L 11/07/2024 12:26 PM EDT [facility] ALT 19 <=33 U/L 11/07/2024 12:26 PM EDT [facility] BUN 18 8 - 23 mg/dL 11/07/2024 12:26 PM T [facility] eGFR 64 >=60 mL/min/1. 73m2 11/07/2024 12:26 PM EDT [facility] Comment:The estimated glomer ular filtration rate (eGFR) is calculated using a new formula developed by the NKF-ASN task force to eliminate race-based correction factors. The new formula uses serum/plasma creatinine, age, and gender to determine eGFR. A value below 60mls/min might indicate kidney disease and will be flagged. For additional information, see Dixon et al, Am J Kidney Dis. 2021;79(2):268- 288, A Unifying Approach for GFR estimation: Recommendations of the NKF-ASN Task Force on Reassessing the Inclusion of Race in Diagnosing Kidney Disease . Globulin, Total 3.2 2.1 - 4.2 g/dL 11/07/2024 12:26 PM EDT [facility] A/G Ratio 1.3(L) 1.5 - 3.0 11/07/2024 12:26 PM T [facility] Blood Structure of peripheral vein / Unknown Venipuncture / Unknown 11/07/2024 11:51 AM EDT 11/07/2024 11:59 AM EDT Zhanna Israel IT BUSINESS SYSTEMS ANALYST LAB BLOOD ORDERABLES Final Resu lt [facility] [address] [place] [address], [place] [phone] * COLONOSCOPY (12/16/2011 2:35 PM EDT) Colonoscopy Dr. Titus [facility] 12/16/2011 2:35 PM EDT Shyam Titus HEALTH MAINTENANCE Final Result [facility] from Last 3 Months or Most Recently Relevant to Health Maintenance Insurance Advance Directives * Full Code (Latest Code [...] Agents on File Name Relationship Healthcare Agent Relationsour lady of mercy hospital - [facility] Communication Yobani Ley Spouse Health Care Agent [email or web address] Care Teams Financial Assistance Specialist Relationship Specialty Start Date End Date Priyanka Mckeon MD [address] [place] [id number] PCP - General Internal Medicine 11/16/24
--- OUTSIDE RECORDS SUMMARY | 2025-05-02 15:53 | XMS_ITS | Clinical Summary ---
Author Organization [facility] Address [address] [place] [address] Care Team Providers Care Manager Strategic Partnerships Name Role Phone Priyanka Mckeon MD Primary Care Provider [phone] Allergies Active Allergy Reactions Criticality Noted Date [...] PCV) 2022 2021 COVID-19 Vaccine (3 - 2024-2 6 season) 2025 11/07/2020, 10/17/2020 Influenza Vaccine (#1) 2025 , 06/25/2019 RSV Adult > 60+ Yrs or (1 - 1-dose 75+ series) 02/24/2031 Hepatitis B Vaccines Aged Out No long er eligible based on patient's age to complete this topic RSV Ped < 20 months Aged Out No longe r eligible based on patient's age to complete this topic Care Teams Manager Strategic Partnerships Relationship Specialty Start Date End Date Priyanka Mckeon MD [address] [place] [address] [place] [address] PCP - General Internal Medicine 11/26/21
--- OUTSIDE RECORDS SUMMARY | 2025-05-02 15:53 | XMS_ITS | Encounter Summary ---
Author Organization [facility] Address [address] [place] [address] Care Team Providers Care Instructional Technology Director Name Role Phone Priyanka Mckeon MD Primary Care Provider [phone]- [phone] Encounter Details Date Type Department Care Team (Latest Contact Info) Description 04/11/2023 Lab Requisition [facility] Lab [address] [place] [address] Lindsey Ricks MD [address] [place] [address] Postmenopausal bleeding Social History Tobacco Use Types [...] Info) Description 11/19/2025 1:00 PM EDT Follow-Up [facility] 100 [facility] Medical [facility] Cardiology [address] [place] [address] Angely Sol NP [address] [place] [address] documented as of this encounter Procedures * Due to [place] state law, this organization might not be sharing negative HIV tests. Procedure Name Priority Date/Time Associated Diagnosis Comments TISSUE EXAM - BENDER ONLY Routine 04/08/2023 3:44 PM EDT Postmenopausal bleeding documented in this encounter Results * Due to [place] [employer] law, this organization might not be sharing negative HIV tests. * Tissue Exam - Bender only (04/08/2023 3:44 PM EDT) Tissue Exam Result SEE DETAILS 04/13/2023 4:15 PM EDT [facility] Comment: FINAL DIAGNOSIS Endometrium, [...] intradepartmentally. Grossing and technical work performed at [facility] ([facility], [address] [place] [address]; ; [id number]; CLIA #[id number] All professional pathology services performed at [facility] ([address] [place] [address]; ; CLIA #[id number]) Note: Some or all of the tests utilized in this case may be laboratory developed tests (LDT's) and may use class I analyte specific reagents (ASR). These tests were developed for clinical purposes and their performance characteristics determined by [facility] on tissue fixed in 10% neutral buffered formalin. Other fixatives have not been validated, and therefore results on tissue with such fixation should be interpreted with caution and in the clinical context. [facility] are qualified under the CLIA 1988 documents to provide high-complexity clinical laboratory testing. Tissue Specimen from endometrium / Unknown 04/08/2023 3:44 PM EDT 04/11/2023 11:57 AM EDT us Lindsey Ricks MD LAB PATH/CYTO ([place]) Final Result [facility] [address] [place] [address], documented in this encounter Visit Diagnoses Diagnosis Postmenopausal bleeding documented in this encounter Care Teams Instructional Technology Director Relationship Specialty Start Date End Date Priyanka Mckeon MD [address] [place] [address] PCP - General Internal Medicine 11/16/24 documented as of this encounter
--- OUTSIDE RECORDS SUMMARY | 2025-05-02 15:53 | XMS_ITS | Clinical Summary ---
Author Organization [facility] Address [address] [place] [id number] Phone Care Team Providers Care Second Officer Name Role Phone Pcp, Unknown Primary Care Provider Unavailabl e Social History Tobacco Use Types Packs/Day Years Used Date Smoking Tobacco: Never Assessed Education Answer Date Recorded Are you interested in more education? Not on shmuel e 04/12/2025 Are you concerned about learning? Not on file 04/12/2025 No 04/12/2025 No 04/12/2025 Digital Access Answer Date Recorded No 04/12/2025 No 04/12/2025 Reliable internet access at home? Not on file 04/12/2025 Device with a working camera? Not on file Comments Unknown Sex and Gender Information Value Date Recorded Sex Assigned at Not on file Legal Sex Female 3:55 PM EDT Gender Identity Not on file Sexual Orientation Not on file Plan of Treatment Upcoming Encounters Date Type Department Care Team ([facility] st Contact Info) Description 10/11/2025 11:15 AM EDT Office Visit [facility] [address] [place] [id number] Rhona Avila PA-C [address] [place] [id number] [email or web address] Health Maintenance Due Date Last Done Comments Adult Td,Tdap Booster 1956 LIPID PANEL 1956 DEPRESSION SCREENING 1968 SMOKING Hx and SMOKELESS TOB ACCO SCREENING 02/24/1969 HEPATITIS C SCREENING 02/24/1974 MAMMOGRAM 1996 COLOGUARD 02/24/2001 COLONOSCOPY 02/24/2001 COLORECTAL CANCER SCREENING 02/24/2001 FIT TEST 02/24/2001 FOBT 02/24/2001 SIGMOIDOSCOPY 02/24/2001 VIRTUAL COLONOSCOPY 02/24/2001 PNEUMOCOCCAL VACCINES (50+ y ears) (1 of 1 - PCV) 02/24/2006 ZOSTER VACCINES (1 of 2) 02/24/2006 OSTEOPOROSIS SCREENING INITI AL (ONE-TIME) 02/24/2021 INFLUENZA VACCINE (#1) 2025 COVID-19 VACCINE (1 - 2024-2 6 season) 2025 RSV VACCINE (1 - 1-dose 75+ series) 02/24/2031 HEPATITIS A VACCINES Aged Out No long er eligible based on patient's age to complete this topic HIB VACCINES Aged Out No longer eligi ble based on patient's age to complete this topic MENINGOCOCCAL VACCINES (ACWY) Aged Out No longer eligible based on patient's age to complete this topic MENINGOCOCCAL VACCINES (B) Aged Out N o longer eligible based on patient's age to complete this topic Medical Devices Not on file Care Teams Second Officer Relationship Specialty Start Date End Date Pcp, Unknown PCP - General 04/12/25 Additional Source Comments The information contained in this document represents components of the legal health record. It is not the complete legal health record.[facility]
--- OUTSIDE RECORDS SUMMARY | 2025-05-02 15:53 | XMS_ITS | Data Portability ---
Author Organization [place] [facility] Sub[facility] Reyes AONE Dupuyer Address [address] [place] [address] Care Team Providers Care Non Licensed Nuclear Equipment Operator Name Role Phone TRACYE KOCH Orthopedic Surgeon Assessment Encounter Date Assessment Date Assessment LastModified by Organization Details LastModified Time 03/20/2025 03/20/2025 Patient is a 70-year-old female with ycky-cw-axbd articulation in the right knee. She has received hyaluronic acid injection in the past. She had a recent episode which she felt was different after period of extended standing and walking. She feels her knee is unstable at times. We reviewed her x-rays together on the computer. Although she is in need of a knee replacement, a BMI of 62 makes it very difficult. Her surgeon Dr. Koch had given her hyaluronic acid injection a year ago. She was recommended to return to Dr. Koch to consider hyaluronic acid injection again. She is looking for some relief. She was offered a corticosteroid injection and eager to proceed. Realistic expectations were emphasized. Advantages and limitations of knee braces were discussed. Her has a brace that he thinks would fit her which she will try. Continues to have instability, walker might be helpful. Patient tolerated the injection well. Postinjection instructions given. Frequency of injection was reviewed. Patient will follow-up in 3 to 4 weeks if symptoms have not improved, sooner for any complications. All questions answered to their satisfaction. Patient will call and schedule with Dr. Koch. Patient was evaluated by Jl Ramírez PA-C. I, Austen Juan MD, was present in the office or available for consultation. I reviewed the documentation, including history, exam, and test results, and I agree with the assessment and treatment plan as documented. [email or web address] Not available 03/20/2025 13:09:08 Plan of Treatment Reminders Order Date Submit Date Provider Last Modified By Organization Details Last Modified Time Details Appointments None recorded. Lab None recorded. Referral None recorded. Procedures None recorded. Surgeries None recorded. Imaging XR, knee, 4 or more view 2024 0[address] [place] [address] [facility], [address], [place], [address], 15:46:30 Medication Orders lidocaine (PF) 100 mg/5 mL (2 %) injection syringe 2024 025 [place] [address] [id number], [address] [place], [address], 15:46:30 triamcinolo ne acetonide 40 mg/mL suspension for injection 2024 025 [place] [address] [id number], [address] [place], [address], 5 15:46:30 Patient TargetsNo targets recorded. Patient Instructions Encounter Date Encounter Id Patient Instructions Last Modified By Organization Details Last Modified Time 03/20/2025 [id number] Radiographs: 4 views of the Left knee(s) were obtained in the [place] office on 03/20/2025 including AP, [place], lateral (weightbearing), and sunrise. X-rays demonstrated mildly decreased bony mineralization. Joint spaces severely decreased medial and patellafemoral subchondral sclerosis and osteophytosis. No evidence of acute injury or fracture. Findings: Osteoarthritis Left Knee. X-ray interpretation by: Jl Ramírez PA-C [email or web address] Not available 03/20/2025 13:09:43 Reason for Referral None Reported. Problems Name Problem SNOMED Code Status Onset Date Resolution Date Notes Provider Name and Address Organization Details Recorded Time Arthritis of right knee joint 05124744154 51335 Active 2017 Arthritis of right knee Arth ritis of knee, right Not Available [facility] 5 23:47:57 Arthritis of left knee joint 99364011728 94566 Active 2018 Arthritis of knee, left Not Available [facility] 5 23:47:56 Problem Notes None recorded. Procedures Surgical History Date Name Laterality Status Provider Name and Address Organization Details Recorded Time 5 HAKAN Knee Injection completed JL RAMÍREZ PA-C [address], [place], [address], [place] [facility], 03/20/2025 13:06:51 Imaging Results None recorded. Procedure Notes None recorded. Medical Equipment None Reported. Allergies Allergen ID Allergen Name Allergen Category Reaction Reaction Severity Criticality Documentation Date Start Date Code Code System Note Provider Name and Address Organization Details Recorded Time 32949 Product containin g penicilli n (product) medicatio n Not available Not available Not available 04/02/20252017 58622 8001 SNOMED Not Available [facility] 5 01:21:12 Medications Name Sig Start Date Stop Date Status Note LastModified by Organization Details LastModified Time gabapentin 600 mg tablet 600 mg 3 (three) times a day. 2017 active Not Available Not Available Not Avai lable ondansetron HCl 4 mg tablet 2020 active Not Available Not Available Not Avai lable melatonin 3 mg tablet Take 3 mg by mouth every night at bedtime as needed. for insomnia 2017 active Not Available Not Available Not Avai lable bupropion HCl SR 100 mg tablet,12 hr sustained-r elease Take 100 mg by mouth every morning. 2017 active Not Available Not Available Not Avai lable citalopram 20 mg tablet TAKE 1 TABLET BY MOUTH EVERY DAY 2017 active Not Available Not Available Not Avai lable triamcinolo ne acetonide 40 mg/mL suspension for injection Take 40 mg by injection route. 2024 active Not Available Not Available Not Avai lable levothyroxi ne 50 mcg tablet TAKE 1 TABLET BY MOUTH EVERY DAY 2017 active Not Available Not Available Not Avai lable lisinopril 10 mg tablet TAKE 1 TABLET BY MOUTH EVERY DAY 2017 active Not Available Not Available Not Avai lable omeprazole 20 mg capsule,del ayed release Take 20 mg by mouth 2 (two) times a day. 2017 active Not Available Not Available Not Avai lable fluticasone propionate 50 mcg/actuati on nasal spray,suspe nsion USE 1 SPRAY IN BOTH NOSTRILS TWICE A DAY FOR 14 DAYS 2017 active Not Available Not Available Not Avai lable Ventolin HFA 90 mcg/actuati on aerosol inhaler INHALE 1 TO 2 PUFFS EVERY 4 HOURS IF NEEDED. 2017 active Not Available Not Available Not Avai lable bupropion HCl SR 200 mg tablet,12 hr sustained-r elease TAKE 1 TABLET BY MOUTH EVERY MORNING 2017 active Not Available Not Available Not Avai lable lidocaine (PF) 10 mg/mL (1 %) injection solution 11/23 completed Not Available Not Available Not Available lidocaine (PF) 100 mg/5 mL (2 %) injection syringe Take 4 mL by injection route. 2024 active Not Available Not Available Not Avai lable Myrbetriq 25 mg tablet,exte nded release 2021 active Not Available Not Available Not Avai lable hyaluronate sodium, cross-linke d 30 mg/3 mL intra-artic ular syringe 03/28 completed Not Available Not Available Not Available hyaluronate sodium, stabilized 88 mg/4 mL intra-artic ular syringe 02/10 completed Not Available Not Available Not Available Vitals Date Recorded Body height Body mass index (BMI) Body weight Provider Name and Address Organization Details Last Updated DateTime 03/20/2025 160.02 cm 62.9 kg/m2 673658.[address] [facility] 03/20/2025 12:00:53 Social History None recorded. Functional Status None recorded. Mental Status None recorded. Family History Nothing Reported. Medical History No medical history recorded. Gynecological HistoryNo gynecological history recorded. Obstetrics History GPAL:G 0 P 0 0 0 0 Immunizations Vaccine Type Date Status Note Provider Nam e and Address Organization Details Recorded Time COVID-19, mRNA, LNP-S, PF, 30 mcg/0.3 mL dose 11/07/2020 completed Not Available [facility] 5 06:13:56 COVID-19, mRNA, LNP-S, PF, 30 mcg/0.3 mL dose 10/17/2020 completed Not Available [facility] 5 06:13:56 Past Encounters Encounter ID Performer Location Encounter Start Date Encounter Closed Date Diagnosis/Indication Diagnosis SNOMED-CT Code Diagnosis ICD10 Code Diagnosis IMO Codes Diagnosis Note [id number] JL RAMÍREZ PA-C [facility]ly [facility] [address] [facility] [address] [place] [address] 03/20/2025 11:38:20 03/20/2025 12:28:50 Pain of left knee region 5887075108 55043 M25.562 44358118 Osteoarthr itis of left knee joint 2812573288 50674 M17.12 [id number] Health Concerns Section Related Observation LastModified by Organization Detai ls LastModified Time None Recorded Concern Status LastModified by Organization Details LastModified Time None Recorded Advance Directives Directive None Recorded Payers Insurance Date Sequence Insurance Name Policy Number Policy Alejandro Covered Member ID Alejandro Member ID Guarantor Name 03/20/2025 1 [employer] - [facility] INDEMNITY PLAN (PPO) [id number] Marie Ley [id number] Marie Ley 03/20/2025 1 [employer] - [employer] IN[employer]ITY PLAN (INDEMNITY) [id number] Marie Ley [id number] Marie Ley Notes Date Note Type Note Provider Name and Address Organization Details Recorded Time 03/20/2025 text/html ROS as noted in the HPI Patient is a 70-year-old female who presents today with left knee pain. She is finding her knee becoming more unstable. She is a patient of Dr. Mccauley in [place] and was last seen a year ago. She underwent a hyaluronic acid injection which offered some relief. Unfortunately, she needs a knee replacement but is morbidly obese. She is 5 feet 3 inches tall, 355 pounds. She is frustrated with her symptoms. She presents today for urgent care evaluation looking for options. Past medical history of COPD, hypertension, thyroid dysfunction, osteopenia and reflux. She is a former smoker rare alcohol intake denies recreational drug use. JL RAMÍREZ PA-C [address], [place], [address], [place] [facility] 03/20/2025 13:10:23 OBGyn Episode No OBEpisode recorded.
--- OUTSIDE RECORDS SUMMARY | 2025-05-02 15:53 | XMS_ITS | Clinical Summary ---
Author Organization [facility] Address [address] [place] [address] Care Team Providers Care Tool Maker Apprentice Name Role Phone Priyanka Mckeon MD Primary [...] 1 Refills, Maintenance, 03/09/23 8:05:00 EDT, Tablet, [id number], 160, cm, 01/27/23 11:22:00 EDT, Height, [...] MOUTH EVERY DAY AT BEDTIME 05/24/2023 Active Immunizations Immunization Administration Dates Next Due Tdap 04/11/2025 Social History Tobacco Use Types Packs/Day Years [...] Adults 18 yrs or above (or HM Modifier)([facility]) 02/24/1974 Hepatitis C Virus Infection in Adolescents and Adults: Screening (or Modifier) ([facility]) 02/24/1974 [facility] Screening Reminder: Suzi ually for all adults ([facility]) 02/24/1974 Colorectal Cancer Screening 45 -75 Yrs (or HM Modifier) 02/24/2001 Colorectal Cancer: FLEXIBLE SIGMOIDOSCOPY Screening every 5 yrs 02/24/2001 Colorectal Cancer: Fecal Immunochemical Test (FIT) Annually [facility] 02/24/2001 Colorectal Cancer: High-sens itivity gFOBT Screening Annually [facility] 02/24/2001 Colorectal Cancer: Stool Col oguard Screening every 3 yrs 02/24/2001 Colorectal Cancer:CT Colonog simon Screening every 5 yrs 02/24/2001 Breast Cancer: Screening Suzi ually age 50-74 yrs (or HM Modifier)([facility]) 02/24/2006 Lung Cancer: Screening Annua lly in adults aged 50 to 80 years (or HM Modifiers)([facility]) 02/24/2006 Zoster/Shingles Vaccine Seri es Screening: Adults aged 18+ yrs (or HM Modifiers)([facility]) (1 of 2) 02/24/2006 Osteoporosis Screening to Pr event Fractures: Women aged 65 years+ ([facility]) 02/24/2021 Tobacco Smoking Cessation: i n Adults excluding Women: Behavioral and Pharmacotherapy Interventions ([facility]) 12/20/2021 12/20/2020 Pneumococcal Vaccination Scr eening: Patients 50+ yrs of age ([facility]) (2 of 2 - PCV) 2022 2021 Flu Vaccination: Ages 65+: Y early High Dose Recommended (or Modifier)([facility]) 02/08/2025 COVID-19 Vaccine Screening: Initial Series and Booster Status ([facility]) ( - 2024- season) 2025 07/07/2021, 11/07/2020, 10/17/2020 RSV Vaccines (1 - 1-dose 75+ series) 02/24/2031 DTaP/Tdap/Td Vaccines ([facility]) (4 - Td or Tdap) 04/11/2035 04/11/2025, 04/18/2018, 09/06/2007 Medical Devices Not on file Insurance [facility] Care Teams Tool Maker Apprentice Relationship Specialty Start Date End Date Priyanka Mckeon MD [address] [place] [address] PCP - General Internal Medicine 12/20/20
--- OUTSIDE RECORDS SUMMARY | 2025-05-02 15:53 | XMS_ITS ---
Author Name [facility] Organization Unknown Encounters Encounter Type Encounter Reason Primary Diagnosis Location Date Ambulatory [facility] 03/21/2025 Ambulatory [facility] 03/20/2025 Ambulatory [facility] 03/20/2025 Ambulatory [facility] 03/20/2025 Ambulatory [facility] 09/15/2022
== END 2025-05-02 14:03 | disposition home or self-care (01) ==
LOC: HO.HPS 12:46
PROVIDERS: PCP Internal Medicine; Visit Provider Hospitalist
DX: R91.8 Other nonspecific abnormal finding of lung field (principal); G47.33 Obstructive sleep apnea (adult) (pediatric); I27.20 Pulmonary hypertension, unspecified; J40 Bronchitis, not specified as acute or chronic
CPT/HCPCS: 99214

== ENCOUNTER 2025-06-27 12:55 | Outpatient (AMB) | payer OTHER, SELFPAY ==
[2025-06-27 12:58] VITALS: BMI 61.3
--- NOTE | 2025-06-27 12:58 | MHC.OFFVIS ---
Vital Signs 06/27/25 12:58 Height 5 ft 3 in Weight 346 lb BMI 61.3 Intake Visit Reasons: bilateral knee pain Intake Note: melissa is a 70 year old female who presents with complaints of progressively worsening bilateral knee pains. She describes her pains as sharp in nature. She has had cortisone injections in the past which gave her fairly good relief. She has tried Tylenol and anti-inflammatory medicines which gave her minimal relief. Allergies No Known Allergies Allergy (Verified 06/27/25 13:04) Medication List - Last Reconciled 06/27/25 by Mendel Laura MD acetaminophen 500 mg PO Q4H PRN albuterol sulfate 90 mcg/actuation 2 inhalations inhalation Q6H PRN 30 days amlodipine 5 mg PO DAILY ascorbate calcium (vitamin C) 500 mg PO DAILY azithromycin 500 mg PO DAILY 5 days budesonide-formoterol 160-4.5 mcg/actuation 2 puffs inhalation BID 30 days bupropion HCl SR 200 mg PO QAM cholecalciferol (vitamin D3) 50 mcg PO DAILY citalopram 20 mg PO DAILY levothyroxine mcg PO mecobalamin (vitamin B12) mcg PO methylprednisolone (Medrol (Min)) PO PER PKG DIR 6 days omeprazole 20 mg PO DAILY rosuvastatin 20 mg PO BEDTIME PFSH Medical History (Updated 05/02/25 @ 22:06 by Kwan Avitia MD) GENEVA (obstructive sleep apnea) Pulmonary nodules Social History Alcohol intake: current Alcohol intake frequency: other Comment: vacation Patient Tobacco Use Status: Former Tobacco user Current occupational status: retired Physical Exam Vital Signs: BMI result Body Mass Index 61.3 Extrem Other: Bilateral knee examination shows minimal effusions, palpable crepitus with range of motion, pain with range of motion, no instability Office Procedures AMB Joint Injection/Aspiration Joint Injection/Aspiration Primary Site: Left Knee Prep: site was prepped using aseptic technique Injected: 40 mg of, DepoMedrol, with 3 mL of and 1% plain Lidocaine Procedure: The patient tolerated the procedure well Coding 72885 - Large joint Procedure code (CPT) selection complete AMB Joint Injection/Aspiration Joint Injection/Aspiration Primary Site: Right Knee Prep: site was prepped using aseptic technique Injected: 40 mg of, DepoMedrol, with 3 mL of and 1% plain Lidocaine Procedure: The patient tolerated the procedure well Coding 26117 - Large joint Procedure code (CPT) selection complete Results Reviewed Results Reviewed: X-rays of the patient's bilateral knees taken previously show joint space narrowing, subchondral sclerosis, no acute bony abnormalities Assessment & Plan Assessment & Plan (1) Osteoarthritis of left knee: Code(s): M17.12 - Unilateral primary osteoarthritis, left knee Category: Medical (2) Osteoarthritis of right knee: Code(s): M17.11 - Unilateral primary osteoarthritis, right knee Category: Medical Plan Ms. Ley presents with bilateral knee pains due to osteoarthritis. The risks and benefits of bilateral knee cortisone injections were discussed at length with the patient. The patient wished to proceed. She tolerated the injections well. She will continue with her home exercise program. She will contact me prior to her follow-up appointment in 3 months should any questions or concerns arise. Feel free to call me at any time should questions regarding her orthopedic management arise. I spent 20 minutes in reviewing the patient's records and imaging studies, seeing the patient and documenting in the medical record. Orders: Orders AMB Joint Injection/Aspiration Today M17.12 - Unilateral primary osteoarthritis, left knee AMB Joint Injection/Aspiration Today M17.11 - Unilateral primary osteoarthritis, right knee Coding Level of Care Code Est Pt Level 3 (40854) Add On Problem Visit Only Diagnoses Osteoarthritis of left knee M17.12 Osteoarthritis of right knee M17.11 CPT Codes Coding - 60386 Large joint: 19640 - Large joint ([id number]) Coding - 22982 Large joint: 52861 - Large joint ([id number])
--- OUTSIDE RECORDS SUMMARY | 2025-06-27 16:49 | XMS_ITS | Patient Health Record ---
Author Organization [facility] Address [address] [place] [address] Care Team Providers Care Chip Mucker Name Role Phone Priyanka Mckeon MD Primary Care Provider [place] yen Allergies No Known Allergies Reason For Referral No Information Medications Medication SIG (Take, Route, Frequency, Duration) Notes Start Date End Date Status Synthroid 50 MCG Tablet 1 tablet in the morning on an empty stomach Orally Once a day Active Rosuvastatin Calcium 20 MG Tablet 1 tablet Orally Once a day Active Omeprazole 20 MG Capsule Delayed Release 1 capsule 30 minutes before morning meal Orally Once a day Active Lisinopril 10 MG Tablet 1 tablet Orally Once a day Not-Taking/PRN Ibuprofen 600 MG Tablet 1 tablet with fo od or milk as needed Orally Three times a day Active Cyclobenzaprine HCl 10 MG Tablet 1 tablet at bedtime as needed Orally Once a day Active amLODIPine Besylate 2.5 MG Tablet 1 tablet Orally Once a day Active Citalopram Hydrobromide 10 MG Tablet 1 tablet Orally Once a day Active buPROPion HCl ER (SR) 200 MG Tablet Extended Release 12 Hour 1 tablet in the morning Orally Once a day Active Aspirin 81 81 MG Tablet Delayed Release 1 tablet Orally Once a day Active Wellbutrin SR 200 MG Tablet Extended Release 12 Hour 1 tablet in the morning Orally Once a day Active Vitamin B-12 500 MCG Tablet Sublingual 1 tablet under the tongue and allow to dissolve Sublingual Once a day Active Trospium Chloride ER 60 MG Capsule Extended Release 24 Hour 1 capsule in the morning on an empty stomach or 1 hour before a meal Orally Once a day Active Social History Tobacco Use: Social History Observation Description Date Details (start date - stop date) Former Smoker NA - NA Social History Tobacco Use: Social Info Question Answer Notes Tobacco Use/Smoking Are you a former smoker Problems Problem Type SNOMED Code ICD Code Onset Dates Problem Status W/U Status Risk Notes Problem Complex regional pain syndrome type I of bilateral lower limbs (disorder) (976041073645037) Complex regional pain syndrome I of lower limb, bilateral (G90.523) Active confirmed Problem Osteoarthritis of knee (878293840) Bilateral primary osteoarthritis of knee (M17.0) Active confirmed Plan Of Treatment No Information Insurance Providers Payer Name Payer Address Payer Phone Subscriber Number Group Number Insured Name Patient Relationship to Insured Coverage Start Date Coverage End Date [facility] [address] [place] [phone] [id number] [employer] Self - patient is the insured 5 Medical (General) History Medical History History ICD Code hypertension anemia hyperlipidemia hypothyroidism ibs Surgical History Surgery Date(Month/Year) gallbladder surgery Hospitalization History Reason Date(Month/Year) ER for concussion 03/2023 ER for UTI 04/2023
--- OUTSIDE RECORDS SUMMARY | 2025-06-27 16:49 | XMS_ITS | Data Portability ---
Author Organization [place] [facility] Sub[facility] Reyes AONE Crumpler Address [address] [place] [address] Care Team Providers Care Cryogenics Engineer Name Role Phone TRACEY KOCH Orthopedic Surgeon [phone] Assessment Encounter Date Assessment Date Assessment LastModified by Organization Details LastModified Time 03/20/2025 03/20/2025 Patient is a 70-year-old female with crkc-[id number] articulation in the right knee. She has [...] the assessment and treatment plan as documented. [email or web address] Not available 03/20/2025 13:09:08 Plan of Treatment Reminders Order Date Submit Date Provider Last Modified By Organization Details Last Modified Time Details Appointments None recorded. Lab None recorded. Referral None recorded. Procedures None recorded. Surgeries None recorded. Imaging XR, knee, 4 or more view 2024 [address] [place] [address] [facility], [address], [place], [address], 15:46:30 Medication Orders lidocaine (PF) 100 mg/5 mL (2 %) injection syringe 2024 [address] [place] [address] [id number], [address] [place], [address], 15:46:30 triamcinolo ne acetonide 40 mg/mL suspension for injection 2024 025 [place] [address] [id number], [address] [place], [address], 5 15:46:30 Patient TargetsNo targets recorded. Patient Instructions Encounter Date Encounter Id Patient Instructions Last Modified By Organization Details Last Modified Time 03/20/2025 [id number] Radiographs: 4 views of the Left knee(s) were obtained in the [place] office on 03/20/2025 including AP, Salcedo, lateral (weightbearing), and sunrise. X-rays demonstrated mildly decreased bony mineralization. Joint spaces severely decreased medial and patellafemoral subchondral sclerosis and osteophytosis. No evidence of acute injury or fracture. Findings: Osteoarthritis Left Knee. X-ray interpretation by: Jl Ramírez PA-C [email or web address] Not available 03/20/2025 13:09:43 Reason for Referral None Reported. Problems Name Problem SNOMED Code Status Onset Date Resolution Date Notes Provider Name and Address Organization Details Recorded Time Arthritis of right knee joint 96313926962 14554 Active 2017 Arthritis of right knee Arth ritis of knee, right Not Available [facility] 5 23:47:57 Arthritis of left knee joint 45415634495 27579 Active 2018 Arthritis of knee, left Not Available [facility] 5 23:47:56 Problem Notes None recorded. Procedures Surgical History Date Name Laterality Status Provider Name and Address Organization Details Recorded Time 5 HAKAN Knee Injection completed JL RAMÍREZ PA-C [address], [place], [address], [place] [facility], 03/20/2025 13:06:51 Imaging Results None recorded. Procedure Notes None recorded. Medical Equipment None Reported. Allergies Allergen ID Allergen Name Allergen Category Reaction Reaction Severity Criticality Documentation Date Start Date Code Code System Note Provider Name and Address Organization Details Recorded Time 80289 Product containin g penicilli n (product) medicatio n Not available Not available Not available 04/02/20252017 45148 8001 SNOMED Not Available [facility] 5 01:21:12 Medications Name Sig Start Date [...] Updated DateTime 03/20/2025 160.02 cm 62.9 kg/m2 514232.[address] [facility] 03/20/2025 12:00:53 Social History None recorded. [...] mcg/0.3 mL dose 10/17/2020 completed Not Available [facility] 5 06:13:56 Past Encounters Encounter ID Performer Location Encounter Start Date Encounter Closed Date Diagnosis/Indication Diagnosis SNOMED-CT Code Diagnosis ICD10 Code Diagnosis IMO Codes Diagnosis Note [id number] JL RAMÍREZ PA-C [facility] [address] [facility] [address] [place] [address] 03/20/2025 11:38:20 03/20/2025 12:28:50 Pain of left knee region [id number] 53681 M25.562 [id number] Osteoarthr itis of left knee joint 0031909256 22311 M17.12 [id number] Health Concerns Section Related Observation LastModified by Organization Detai ls LastModified Time None Recorded Concern Status LastModified by Organization Details LastModified Time None Recorded Advance Directives Directive None Recorded Payers Insurance Date Sequence Insurance Name Policy Number Policy Alejandro Covered Member ID Alejandro Member ID Guarantor Name 03/20/2025 1 [employer] - [facility] INDEMNITY PLAN (PPO) [id number] Marie Ley [id number] Marie Ley 03/20/2025 1 [employer] - [employer] INDE[employer]ITY PLAN (INDEMNITY) [id number] Marie Ley [id number] Marie Ley Notes Date Note Type Note Provider Name and Address Organization Details Recorded Time 03/20/2025 text/html ROS as noted in the HPI Patient is a 70-year-old female who presents today with left knee pain. She is finding her knee becoming more unstable. She is a patient of Dr. Mccauley in [place] and was last seen a year ago. [...] JL RAMÍREZ PA-C [address], [place], [address], [place] [facility] 03/20/2025 13:10:23 OBGyn Episode No OBEpisode recorded.
--- OUTSIDE RECORDS SUMMARY | 2025-06-27 16:49 | XMS_ITS | Encounter Summary ---
Author Organization [facility] Address [address] [place] [address] Care Team Providers Care Department Store Salesperson Name Role Phone Priyanka Mckeon MD Primary Care Provider [phone] Encounter Details Date Type Department Care Team (Latest Contact Info) Description 04/11/2023 Lab Requisition [facility] [address] [place] [address] Lindsey Ricks MD [address] [place] [address] Postmenopausal bleeding Social History Tobacco Use Types [...] Info) Description 11/19/2025 1:00 PM EDT Follow-Up [facility] [address] [facility] Medical [facility] [address] [place] [address] Angely Sol NP [address] [place] [address] documented as of this encounter Procedures * Due to [place] state law, this organization might not be sharing negative HIV tests. Procedure Name Priority Date/Time Associated Diagnosis Comments TISSUE EXAM - BENDER ONLY Routine 04/08/2023 3:44 PM EDT Postmenopausal bleeding documented in this encounter Results * Due to [place] [employer] law, this organization might not be sharing negative HIV tests. * Tissue Exam - Bender only (04/08/2023 3:44 PM EDT) Tissue Exam Result SEE DETAILS 04/13/2023 4:15 PM EDT [facility] Comment: FINAL DIAGNOSIS [...] intradepartmentally. Grossing and technical work performed at [facility] ([facility], [address] [place] [address]; ; [id number]; CLIA #[id number] All professional pathology services performed at [facility] ([address] [place] [address]; ; CLIA #[id number]) Note: Some or all of the tests utilized in this case may be laboratory developed tests (LDT's) and may use class I analyte specific reagents (ASR). These tests were developed for clinical purposes and their performance characteristics determined by [facility] on tissue fixed in 10% neutral buffered formalin. Other fixatives have not been validated, and therefore results on tissue with such fixation should be interpreted with caution and in the clinical context. [facility] are qualified under the CLIA 1988 documents to provide high-complexity clinical laboratory testing. Tissue Specimen from endometrium / Unknown 04/08/2023 3:44 PM EDT 04/11/2023 11:57 AM EDT us Lindsey Ricks MD LAB PATH/[facility] ([place]) Final Result [facility] [address] [place] [address], documented in this encounter Visit Diagnoses Diagnosis Postmenopausal bleeding documented in this encounter Care Teams Department Store Salesperson Relationship Specialty Start Date End Date Priyanka Mckeon MD [address] [place] [address] PCP - General Internal Medicine 11/16/24 documented as of this encounter
--- OUTSIDE RECORDS SUMMARY | 2025-06-27 16:49 | XMS_ITS | Clinical Summary ---
Author Organization [facility] Prior to 12/08/24 Address [address] [place] [address] Care Team Providers Care Senior Court Office Assistant Name Role Phone Priyanka Mckeon MD Primary Care Provider [phone]- [phone] Allergies Active Allergy Reactions Criticality Noted Date [...] TABLET BY MOUTH EVERY DAY 07/16/2017 Active lisinopril (PRINIVIL,ZESTRIL) tablet 10 mg [...] age to complete this topic Care Teams Senior Court Office Assistant Relationship Specialty Start Date End Date Priyanka Mckeon MD [address] [place] [address] Primary Care TREMAYNE [place] [id number] PCP - General Internal Medicine 11/26/21
--- OUTSIDE RECORDS SUMMARY | 2025-06-27 16:50 | XMS_ITS | Clinical Summary ---
Author Organization [facility] [employer] Address [address] [place] [address] Care Team Providers Care Survey Research Manager Name Role Phone Priyanka Mckeon MD Primary [...] 1 Refills, Maintenance, 03/09/23 8:05:00 EDT, Tablet, [id number], 160, cm, 01/27/23 11:22:00 EDT, [...] Adults 18 yrs or above (or HM Modifier)([facility]) 02/24/1974 Hepatitis C Virus Infection in Adolescents and Adults: Screening (or Modifier) ([facility]) 02/24/1974 [facility] Screening Reminder: Suzi ually for all adults ([facility]) 02/24/1974 Colorectal Cancer Screening 45 -75 Yrs (or HM Modifier) 02/24/2001 Colorectal Cancer: FLEXIBLE SIGMOIDOSCOPY Screening every 5 yrs 02/24/2001 Colorectal Cancer: Fecal Immunochemical Test (FIT) Annually [facility] 02/24/2001 Colorectal Cancer: High-sens itivity gFOBT Screening Annually [facility] 02/24/2001 Colorectal Cancer: Stool Col oguard Screening every 3 yrs 02/24/2001 Colorectal Cancer:CT Colonog simon Screening every 5 yrs 02/24/2001 Breast Cancer: Screening Suzi ually age 50-74 yrs (or HM Modifier)([facility]) 02/24/2006 Lung Cancer: Screening Annua lly in adults aged 50 to 80 years (or HM Modifiers)([facility]) 02/24/2006 Zoster/Shingles Vaccine Seri es Screening: Adults aged 18+ yrs (or HM Modifiers)([facility]) (1 of 2) 02/24/2006 Osteoporosis Screening to Pr event Fractures: Women aged 65 years+ ([facility]) 02/24/2021 Tobacco Smoking Cessation: i n Adults excluding Women: Behavioral and Pharmacotherapy Interventions ([facility]) 12/20/2021 12/20/2020 Pneumococcal Vaccination Scr eening: Patients 50+ yrs of age ([facility]) (2 of 2 - PCV) 2022 2021 Flu Vaccination: Ages 65+: Y early High Dose Recommended (or Modifier)([facility]) 02/08/2025 COVID-19 Vaccine Screening: Initial Series and Booster Status ([facility]) ( - 2024- season) 2025 07/07/2021, 11/07/2020, 10/17/2020 RSV Vaccines (1 - 1-dose 75+ series) 02/24/2031 DTaP/Tdap/Td Vaccines ([facility]) (4 - Td or Tdap) 04/11/2035 04/11/2025, 04/18/2018, 09/06/2007 Medical Devices Not on file Insurance [facility] Care Teams Survey Research Manager Relationship Specialty Start Date End Date Priyanka Mckeon MD [address] [place] [address] PCP - General Internal Medicine 12/20/20
--- OUTSIDE RECORDS SUMMARY | 2025-06-27 16:50 | XMS_ITS | Clinical Summary ---
Author Organization [facility] Address [address] [place] [address] Care Team Providers Care [employer]ier Metal Furniture Name Role Phone Priyanka Mckeon MD Primary Care Provider Allergies Active Allergy Reactions Criticality Noted Date [...] mg by mouth every night. 5 Active aicwovht-tmq-RC-lyc open-lutein 0.4 mg-300 mcg- 250 mcg tablet [...] cardiovascular exam 07/27/2023 Anemia 04/23/2023 CAD in [place] artery 04/23/2023 SY (dyspnea on exertion) 04/23/2023 [...] Info) Description 11/19/2025 1:00 PM EDT Follow-Up [address] [facility] [address] [place] [address] Angely Sol, SARAH [address] [place] [address] [address] [place] [address] Health Maintenance Due Date Last Done Comments Cologuard 1956 FOBT / Fit Test 1956 Hepatitis C Screening 1955 Sigmoidoscopy 1956 Mammogram 1996 Osteoporosis Screening 02/24/2006 RSV Vaccine (60+ years old and patients) (1 - Risk 50-74 years 1-dose series) 02/24/2006 Zoster Vaccines (1 of 2) 02/24/2006 Colon Cancer Screening 12/15/2021 Colonoscopy 12/15/2021 12/16/2011 Pneumococcal Vaccine: 50+ Years (2 of 2 - PCV) 2022 2021 Alcohol/Substance Use Screening 07/11/2024 Depression Screening and Follow-Up 07/11/2024 Health Care Proxy Review 07/11/2024 Social Drivers of Health Annual Screening 07/11/2024 Influenza Vaccine (#1) 2025 , 06/25/2022, 05/30/2021, Additional history exists COVID-19 Vaccine ( season) 2025 06/04/2022, 07/07/2021, 11/07/2020, Additional history exists Basic Metabolic Panel 11/07/2025 11/07/2024 Fall Risk Screening 11/27/2025 11/27/2024 Diabetes Screening 11/08/2027 11/07/2024, 11/07/2024 DTaP,Tdap,and Td Vaccines (3 - Td or Tdap) 04/18/2028 04/18/2018, 09/07/2007 Hepatitis B Vaccines Aged Out No long er eligible based on patient's age to complete this topic Medical Devices Implanted Type Area Medical Translator Device Identifier Shelf Expiration Date Model / Serial / Lot Lens Intraocular [employer]ome Ultraviolet Filtering 15.0 Diopter With [id number] [place] - [id number] - [id number] Implanted:Qty: 1 on 11/13/2024 by Prudencio Loaiza MD at [facility] Lens YANCY 05/21/2027 CNA0T0 .150 / [id number] / Lens Intraocular [employer]ome Ultraviolet Filtering 15.0 Diopter With [id number] [place] - [id number] - [id number] Implanted:Qty: 1 on 11/27/2024 by Prudencio Loaiza MD at [facility] Lens YANCY 12/27/2026 CNA0T0 .150 / [id number] / Procedures * Due to [place] state law, this organization might not be sharing negative HIV tests. Procedure Name Priority Date/Time Associated Diagnosis Comments HEMOGLOBIN A1C STAT 11/07/2024 11:53 AM EDT Pre-op evaluation COMPREHENSIVE METABOLIC PANEL STAT 11/07/2024 11:51 AM EDT Pre-op evaluation COLONOSCOPY Routine 12/16/2011 2:35 PM EDT from Last 3 Months or Most Recently Relevant to Health Maintenance Results * Due to [place] state law, this organization might not be sharing negative HIV tests. * (ABNORMAL) Hemoglobin A1c (11/07/2024 11:53 AM EDT) Hemoglobin A1c 5.8(H) 4.0 - 5.7 % 11/07/2024 12:20 PM EDT [facility] Estimated Average Glucose 120 mg/dL 11/07/2024 12:20 PM EDT [facility] Blood Structure of peripheral vein / Unknown Venipuncture / Unknown 11/07/2024 11:53 AM EDT 11/07/2024 11:59 AM EDT us Zhanna Israel [facility] LAB BLOOD ORDERABLES Final Resu lt Performing Organization Address City/State/[facility] Co de Phone Number [facility] [address] [place] [address] [address] [place] [address], [place] [phone] * (ABNORMAL) Comprehensive Metabolic Panel (11/07/2024 11:51 AM EDT) Pathologist [facility] NA 138 136 - 145 mmol/L 11/07/2024 12:26 PM EDT [facility] K 5.0 3.5 - 5.1 mmol/L 11/07/2024 12:26 PM EDT [facility] Cl 101 98 - 109 mmol/L 11/07/2024 12:26 PM EDT [facility] CO2 27 22 - 32 mmol/L 11/07/2024 12:26 PM EDT [facility] Anion Gap 15 >=0 11/07/2024 12:26 PM EDT [facility] Glucose 105(H) 60 - 99 mg/dL 11/07/2024 12:26 PM EDT [facility] Creatinine 0.97 0.50 - 1.12 mg/dL 11/07/2024 12:26 PM EDT [facility] Calcium 10.1 8.4 - 10.4 mg/dL 11/07/2024 12:26 PM EDT [facility] Total Protein 7.3 6.6 - 8.7 g/dL 11/07/2024 12:26 PM EDT [facility] Albumin 4.1 3.5 - 5.0 g/dL 11/07/2024 12:26 PM EDT [facility] Bilirubin, Total 0.7 0.2 - 1.2 mg/dL 11/07/2024 12:26 PM EDT [facility] Alkaline Phosphatase 74 40 - 129 U/L 11/07/2024 12:26 PM EDT [facility] AST 24 0 - 33 U/L 11/07/2024 12:26 PM EDT [facility] ALT 19 <=33 U/L 11/07/2024 12:26 PM EDT [facility] BUN 18 8 - 23 mg/dL 11/07/2024 12:26 PM T [facility] eGFR 64 >=60 mL/min/1. 73m2 11/07/2024 12:26 PM T [facility] Comment:The estimated glomer ular filtration rate [...] 2.1 - 4.2 g/dL 11/07/2024 12:26 PM T [facility] A/G Ratio 1.3(L) 1.5 - 3.0 11/07/2024 12:26 PM T [facility] Blood Structure of peripheral vein / Unknown Venipuncture / Unknown 11/07/2024 11:51 AM EDT 11/07/2024 11:59 AM EDT Zhanna Israel [facility] LAB BLOOD ORDERABLES Final Resu lt [facility] [address] [place] [address], [place] [phone] * COLONOSCOPY (12/16/2011 2:35 PM EDT) Colonoscopy [facility] Titus [facility] 12/16/2011 2:35 PM EDT Shyam Titus HEALTH MAINTENANCE Final Result [facility] from Last 3 Months or Most Recently Relevant to Health Maintenance Insurance [facility] Advance Directives * Full Code (Latest Code [...] Agents on File Name Relationship Healthcare Agent Delores soto Communication Yobani Ley Spouse Health Care Agent [email or web address] Care Teams [employer] Relationship Specialty Start Date End Date Priyanka Mckeon MD [address] [place] [address] PCP - General Internal Medicine 11/16/24
--- OUTSIDE RECORDS SUMMARY | 2025-06-27 16:50 | XMS_ITS | Clinical Summary ---
Author Organization [facility] Address [address] [place] [address] Phone Care Team Providers Care Deputy Treasurer Name Role Phone Pcp, Unknown Primary Care [...] Upcoming Encounters Date Type Department Care Team ([facility] st Contact Info) Description 10/11/2025 11:15 AM EDT Office Visit [facility] [address] [place] [address] Rhona Avila PA-C [address] [place] [address] [email or web address] Health Maintenance Due Date Last Done Comments [...] Medical Devices Not on file Care Teams Deputy Treasurer Relationship Specialty Start Date End Date Pcp, Unknown PCP - General 04/12/25 Additional Source Comments The information contained in this document represents components of the legal health record. It is not the complete legal health record.[facility]
== END 2025-06-27 13:24 | disposition home or self-care (01) ==
LOC: HO.HOS 12:55
PROVIDERS: PCP Internal Medicine; Visit Provider Orthopaedic Surgery
DX: M17.0 Bilateral primary osteoarthritis of knee (principal)
CPT/HCPCS: 20610; 99213

== ENCOUNTER → 2025-06-27 12:55 | Outpatient (BNVA) | payer OTHER, SELFPAY | PROVIDERS: PCP Internal Medicine; Visit Provider Orthopaedic Surgery | DX: M17.0 Bilateral primary osteoarthritis of knee (principal) | CPT/HCPCS: 20610; J1010; J2003 ==